=== PATIENT | male | born 1940 | race Caucasian/White ===

== ENCOUNTER 2016-08-03 09:00 | Outpatient (RCR) | payer MEDICARE, OTHER ==
[~2016-08-03 09:00] MED LIST: APIX5TAB PO; APIX5TAB2 PO; ASP81TEC PO; ASPI-983 PO; ATEN25TA PO; CLOP75TA28 PO; CLOP75TA69 PO; CYAN100014 PO; CYAN100T PO; DILT240C86 PO; Diltiazem Hcl PO; ENOX80DI12 SQ; FLUT1AER IH; FOLI0.4T2 PO; HYDR-3729 PO; IPRA30SP NS; LEVO500T69 PO; LISI10TA2 PO; LISI40TA PO; LSNP10T PO; MULT1CAP27 PO; OMEG-12 PO; PRAV40TA PO; PRED20TA PO; PRV20T PO
== END 2016-09-25 | disposition home or self-care (01) ==
LOC: PULM 09:00
PROVIDERS: ATTEND Nurse Practitioner Family
DX: J43.9 Emphysema, unspecified (principal); R06.09 Other forms of dyspnea; Z72.0 Tobacco use

== ENCOUNTER → 2016-08-23 | Outpatient (CLI) | payer MEDICARE, OTHER ==
--- NOTE | 2016-08-23 12:52 | Diagnostic Imaging Report ---
EXAMINATION: PA and lateral chest at 10:34 a.m. INDICATION: Respiratory distress. FINDINGS: The heart is borderline enlarged, but the heart does not seem as prominent as noted on the prior exam of 12/12/2014. The central pulmonary vascularity does not appear to be engorged, and there is no evidence for overt failure at this time. There is no evidence for pneumonia either. However, in the interval since the prior study, a small right pleural effusion has developed. The mediastinum is not widened. The osseous structures are intact. IMPRESSION: The heart has decreased in size since the previous study, and the pulmonary congestion noted on the prior exam has resolved. However, there is now a small right pleural effusion present. A followup exam would be recommended for continued evaluation. Dictated by: Dictated on workstation # [id number]
== END ==
LOC: RAD 09:55
PROVIDERS: ATTEND Nurse Practitioner Family
DX: J40 Bronchitis, not specified as acute or chronic (principal); J43.9 Emphysema, unspecified; R06.09 Other forms of dyspnea
CPT/HCPCS: 71020

== ENCOUNTER → 2016-09-19 | Outpatient (CLI) | payer MEDICARE, OTHER ==
[2016-09-19 09:52] LABS: BASOPHILS % (AUTO) 0 % (0-10); EOSINOPHILS # (AUTO) 0.4 10^3/uL (0.0-0.3); EOSINOPHILS % (AUTO) 6 % (0-10); LYMPHOCYTES # (AUTO) 1.8 X 10^3 (1.0-4.0); LYMPHOCYTES % (AUTO) 24 % (12-44); MEAN CORPUSCULAR HEMOGLOBIN 32 PG (25-34); MEAN CORPUSCULAR HGB CONC 34 G/DL (32-36); MEAN CORPUSCULAR VOLUME 93 FL (80-99); MEAN PLATELET VOLUME 9.6 FL (7.4-10.4); MONOCYTES % (AUTO) 13 % (0-12); NEUTROPHILS # (AUTO) 4.2 X 10^3 (1.8-7.8); NEUTROPHILS % (AUTO) 57 % (42-75); PLATELET COUNT 267 10^3/uL (130-400); RED BLOOD COUNT 4.57 10^6/uL (4.35-5.85); RED CELL DISTRIBUTION WIDTH 13.9 % (10.0-14.5); WHITE BLOOD COUNT 7.4 10^3/uL (4.3-11.0)
[2016-09-19 10:04] LABS: ALBUMIN 3.2 G/DL (3.2-4.5); BILIRUBIN,TOTAL 0.6 MG/DL (0.1-1.0); CALCIUM 8.9 MG/DL (8.5-10.1); CREATININE SERUM 1.23 MG/DL (0.60-1.30); POTASSIUM 3.8 MMOL/L (3.6-5.0); TOTAL PROTEIN 6.7 G/DL (6.4-8.2)
[2016-09-19 10:23] LABS: THYROID STIMULATING HORMONE 2.65 UIU/ML (0.35-4.94)
== END ==
LOC: CARD 09:13
PROVIDERS: ATTEND Nurse Practitioner Family
DX: I10 Essential (primary) hypertension (principal); R60.9 Edema, unspecified; I35.0 Nonrheumatic aortic (valve) stenosis
CPT/HCPCS: 36415; 80053; 84443; 85025; 93005

== ENCOUNTER → 2017-04-03 | Outpatient (CLI) | payer MEDICARE, OTHER | LOC: RAD 09:22 | PROVIDERS: ATTEND Nurse Practitioner Family | DX: J32.0 Chronic maxillary sinusitis (principal); R26.9 Unspecified abnormalities of gait and mobility | CPT/HCPCS: 70551 ==

== ENCOUNTER → 2017-04-26 | Outpatient (CLI) | payer MEDICARE, OTHER ==
--- NOTE | 2017-04-26 11:14 | Diagnostic Imaging Report ---
INDICATION: Shortness of breath. COMPARISON: 08/23/2016. FINDINGS: Stable small right pleural effusion. Possible increasing trace left pleural effusion. No pneumothorax. Coarse central heterogeneous opacities have not substantially changed. No dense airspace consolidation. No pneumothorax. Stable borderline cardiomegaly. IMPRESSION: 1. Small right and trace left pleural effusions, similar in appearance to 08/23/2016 examination. 2. Central perihilar opacities may relate to interstitial edema or atypical infectious process. Dictated by: Dictated on workstation # [id number]
== END ==
LOC: RAD 10:36
PROVIDERS: ATTEND Nurse Practitioner Family
DX: J90 Pleural effusion, not elsewhere classified (principal); R91.8 Other nonspecific abnormal finding of lung field
CPT/HCPCS: 71020

== ENCOUNTER → 2017-05-03 | Outpatient (CLI) | payer MEDICARE, OTHER ==
[2017-05-03 11:41] LABS: BASOPHILS % (AUTO) 0 % (0-10); EOSINOPHILS # (AUTO) 0.4 10^3/uL (0.0-0.3); EOSINOPHILS % (AUTO) 5 % (0-10); LYMPHOCYTES # (AUTO) 2.1 X 10^3 (1.0-4.0); LYMPHOCYTES % (AUTO) 23 % (12-44); MEAN CORPUSCULAR HEMOGLOBIN 33 PG (25-34); MEAN CORPUSCULAR HGB CONC 34 G/DL (32-36); MEAN CORPUSCULAR VOLUME 95 FL (80-99); MEAN PLATELET VOLUME 10.2 FL (7.4-10.4); MONOCYTES # (AUTO) 0.9 X 10^3 (0.0-1.0); MONOCYTES % (AUTO) 10 % (0-12); NEUTROPHILS # (AUTO) 5.8 X 10^3 (1.8-7.8); NEUTROPHILS % (AUTO) 62 % (42-75); PLATELET COUNT 212 10^3/uL (130-400); RED BLOOD COUNT 4.24 10^6/uL (4.35-5.85); RED CELL DISTRIBUTION WIDTH 13.9 % (10.0-14.5); WHITE BLOOD COUNT 9.3 10^3/uL (4.3-11.0)
[2017-05-03 12:05] LABS: ALBUMIN 3.9 GM/DL (3.2-4.5); BILIRUBIN,TOTAL 0.8 MG/DL (0.1-1.0); CALCIUM 9.6 MG/DL (8.5-10.1); CREATININE SERUM 1.43 MG/DL (0.60-1.30); POTASSIUM 3.7 MMOL/L (3.6-5.0); TOTAL PROTEIN 7.9 GM/DL (6.4-8.2)
[2017-05-03 12:29] LABS: ABG BASE EXCESS 0.5 MMOL/L (-2.5-2.5); ABG HCO3 25 MMOL/L (23-27); ABG OXYGEN SATURATION 94 % (94-100); ABG PCO2 37 MMHG (35-45); ABG PH 7.43 (7.37-7.43); ABG PO2 64 MMHG (79-93); ABG TCO2 25.7 MMOL/L (21.0-31.0)
[2017-05-03 12:30] LABS: ALLENS TEST YES-POS
[2017-05-03 12:31] LABS: PATIENT TEMP 96.7
--- NOTE | 2017-05-03 14:36 | Diagnostic Imaging Report ---
EXAM: PA and lateral views of the chest. INDICATION: COPD. COMPARISON: 04/26/2017. FINDINGS: The lungs are hyperinflated. Bilateral small pleural effusions, slightly larger on the right side, are seen. Minimal bibasilar atelectasis is noted. The heart is mildly enlarged. There is an element of mild vascular congestion suggested. Prominence of the interstitial markings otherwise is probably chronic. The mediastinum and miya appear unchanged. There is overall no significant change from 04/26/17. IMPRESSION: Mild cardiomegaly and slight vascular congestion. Bilateral small pleural effusions. Dictated by: Dictated on workstation # [id number]
== END ==
LOC: RAD 11:08
PROVIDERS: ATTEND Internal Medicine Critical Care Medicine
DX: J90 Pleural effusion, not elsewhere classified (principal); J43.8 Other emphysema; R06.09 Other forms of dyspnea; J30.9 Allergic rhinitis, unspecified; Z87.891 Personal history of nicotine dependence
CPT/HCPCS: 36415; 71020; 80053; 82805; 83880; 85025

== ENCOUNTER 2017-06-10 22:45 | Inpatient (IN) | payer MEDICARE, OTHER ==
[~2017-06-10] VITALS: Ht 162.6 cm; Wt 64.4 kg
[2017-06-10] MEDS ORDERED: LACTATED RINGERS 1,000 ML IV ONE (22:48)
[2017-06-10] MEDS ORDERED: RT-ALBUTEROL SULF 2.5 MG/3 ML PRE-MIX VIAL INH STA (22:48)
--- OUTSIDE RECORDS SUMMARY | 2017-06-10 22:50 | XMS REPORT ---
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 Info Not Available Non Drug Allergy Problems Problem Type Condition Code Onset Dates Condition Status Assessment Benign essential HTN I10 Active Assessment Epistaxis R04.0 Active Medications Medication Code System Code Instructions Start Date End Date Status Dosage Cartia XT [facility] [address]-35 240 MG Orally Once a day 1 capsule Eliquis [facility] [address]-84 5 MG Orally not defined Pravastatin Sodium [facility] [address]-56 40 MG Orally Once a day 1 tablet Procedures Procedure Coding System Code Date [facility] VISIT NEW PATIENT CPT-4 G0466 October 15, 2015 Office Visit, New Pt., Level 3 CPT-4 57257 October 15, 2015 MEASURE BLOOD OXYGEN LEVEL CPT-4 54816 October 15, 2015 Vital Signs Date/Time: October 15, 2015 Temperature 98.4 F Weight 159.0 lbs Height 64 in Oximetry 98 % Blood Pressure Diastolic 90 mmHg Blood Pressure Systolic 190 mmHg Cardiac Monitoring Heart Rate 92 bpm BMI 27.29 Index Results No Known Results Summary Purpose [employer] Submission
[2017-06-10] MEDS ORDERED: UMEC62.5 INH (22:53)
[2017-06-10] MEDS ORDERED: POTA10TA10 PO (22:53)
[2017-06-10] MEDS ORDERED: PANT40TA3 PO (22:53)
[2017-06-10] MEDS ORDERED: ROPI0.5T2 PO (22:53)
[2017-06-10] MEDS ORDERED: methylPREDNISolone 125 MG (Solu-MEDROL) VIAL IV STA (23:00)
[2017-06-10 23:02] LABS: BASOPHILS # (AUTO) 0.1 10^3/uL (0.0-0.1); BASOPHILS % (AUTO) 1 % (0-10); EOSINOPHILS # (AUTO) 0.2 10^3/uL (0.0-0.3); EOSINOPHILS % (AUTO) 2 % (0-10); LYMPHOCYTES # (AUTO) 2.9 X 10^3 (1.0-4.0); LYMPHOCYTES % (AUTO) 25 % (12-44); MEAN CORPUSCULAR HEMOGLOBIN 32 PG (25-34); MEAN CORPUSCULAR HGB CONC 34 G/DL (32-36); MEAN CORPUSCULAR VOLUME 95 FL (80-99); MONOCYTES # (AUTO) 1.3 X 10^3 (0.0-1.0); MONOCYTES % (AUTO) 11 % (0-12); NEUTROPHILS # (AUTO) 7.2 X 10^3 (1.8-7.8); NEUTROPHILS % (AUTO) 62 % (42-75); PLATELET COUNT 266 10^3/uL (130-400); RED BLOOD COUNT 4.55 10^6/uL (4.35-5.85); RED CELL DISTRIBUTION WIDTH 14.1 % (10.0-14.5); WHITE BLOOD COUNT 11.7 10^3/uL (4.3-11.0)
[2017-06-10 23:14] LABS: INR 1.3 (0.8-1.4); PROTHROMBIN TIME PATIENT 16.6 SEC (12.2-14.7)
[2017-06-10 23:14] LABS: ABG BASE EXCESS 3.1 MMOL/L (-2.5-2.5); ABG HCO3 28 MMOL/L (23-27); ABG OXYGEN SATURATION 100 % (94-100); ABG PCO2 51 MMHG (35-45); ABG PH 7.36 (7.37-7.43); ABG PO2 203 MMHG (79-93); ABG TCO2 29.7 MMOL/L (21.0-31.0)
[2017-06-10 23:17] LABS: ALLENS TEST YES-POS; PATIENT TEMP 98.2
[2017-06-10 23:25] VITALS: BP 136/100
[2017-06-10 23:25] LABS: ALANINE AMINOTRANSFERASE 19 U/L (0-55); ALBUMIN 3.6 GM/DL (3.2-4.5); ANION GAP 11 MMOL/L (5-14); ASPARTATE AMINO TRANSFERASE 22 U/L (5-34); BILIRUBIN,TOTAL 0.6 MG/DL (0.1-1.0); BLOOD UREA NITROGEN 21 MG/DL (7-18); BUN/CREATININE RATIO 15; CALCIUM 9.4 MG/DL (8.5-10.1); CARBON DIOXIDE 29 MMOL/L (21-32); CHLORIDE 102 MMOL/L (98-107); CREATININE SERUM 1.42 MG/DL (0.60-1.30); GFR ESTIMATED 49; GLUCOSE 116 MG/DL (70-105); MAGNESIUM 1.8 MG/DL (1.8-2.4); POTASSIUM 3.4 MMOL/L (3.6-5.0); SODIUM 142 MMOL/L (135-145); TOTAL PROTEIN 7.8 GM/DL (6.4-8.2)
[2017-06-10 23:29] VITALS: BP 147/104
[2017-06-10 23:31] LABS: TROPONIN I < 0.30 NG/ML (<0.30)
--- NOTE | 2017-06-10 23:34 | ED Respiratory ---
General Chief Complaint: Respiratory Problems Stated Complaint: SOA/COPD Nursing Triage Note: brought in by [facility] for c/o increased soa x2 days Source: patient Exam Limitations: clinical condition (SOA and BiPAP initiatied.) (DONTA NI) History of Present Illness Time seen by provider: 23:34 Initial Comments 76-year-old male patient presents to the emergency department with complaints of shortness of air per EMS. EMS was called to the patient's home due to progressively worsening shortness of air over the last 2-3 days. Patient does have a history of COPD. Patient is unable to give history at this time due to shortness of air and BiPAP. (DONTA NI) Initial Comments Patient presents to ER by EMS and EMS gives a chief complaint they're called out because the patient was very short of breath. He has on his home dose of O2 by nasal cannula and they have given 1 dose of DuoNeb en route. fills in the history that recently he was seen by Dr. Ventura and started on cefdinir and prednisone outpatient for possible pneumonia versus COPD exacerbation. He has continued decline despite this intervention and been very short of breath. She also remarks that the last week he has been hallucinating and seeing things that are not there. She says that she is not aware the patient having any fevers , chills, rash. He has been coughing but no more than usual. He's had no diarrhea or throwing up or chest pain that she is aware of. (YELENA DUMONT) Allergies and Home Medications Allergies Coded Allergies: No Known Drug Allergies (Unverified , 01/13/16) Home Medications Apixaban 5 Mg Tablet, 5 MG PO BID, (Reported) Cyanocobalamin 1,000 Mcg Tablet, 1,000 MCG PO DAILY, (Reported) Diltiazem HCl 240 Mg Cap.er.24h, 240 MG PO DAILY, (Reported) Enoxaparin Sodium 80 Mg/0.8 Ml Syringe, 70 MG SQ BID, (Reported) Fluticasone/Vilanterol 1 Each Blst.w.dev, 1 EACH IH DAILY, (Reported) Folic Acid 0.4 Mg Tablet, 0.4 MG PO DAILY, (Reported) Hydrocodone/Acetaminophen 1 Each Tablet, 1-2 EACH PO Q4H, #30 Prescribed by: MIKE CEVALLOS on 01/20/16 0904 Ipratropium Bradner 21 Mcg Wheeler, 2 SPRAYS NS BID PRN for ALLERGIES, (Reported) [place]-3/Dha/Epa/Fish Oil 1 Each Capsule.dr, 1,000 MG PO DAILY, (Reported) Pantoprazole Sodium 40 Mg Tablet.dr, (Reported) Potassium Chloride 10 Meq Tablet.er, (Reported) Pravastatin Sodium 40 Mg Tablet, 40 MG PO HS, (Reported) Ropinirole HCl 0.5 Mg Tablet, (Reported) Umeclidinium [place] 62.5 Mcg Blst.w.dev, (Reported) Constitutional: see HPI (history of present illness is unobtainable as the patient is breathless and having difficulty communicating over the BiPAP mask.) (YELENA DUMONT) Past Rtfvtms-Hqujnr-Ldvary Hx Patient Social History Alcohol Use: Denies Use Recreational Drug Use: No Smoking Status: Former Smoker Former Smoker, Quit: Jan 12, 2013 2nd Hand Smoke Exposure: No Recent Foreign Travel: No Contact w/Someone Who Travel: No Recent Infectious Disease Expo: No Recent Hopitalizations: No (DONTA NI) Immunizations Up To Date Tetanus Booster (TDap): Unknown PED Vaccines UTD: No Date of Pneumonia Vaccine: Oct 14, 2014 Date of Influenza Vaccine: Oct 06, 2014 (DONTA NI) Seasonal Allergies Seasonal Allergies: No (DONTA NI) Surgeries History of Surgeries: Yes (STENT IN R LEG, Cataract bilateral) (DONTA NI) Respiratory History of Respiratory Disorde: Yes Respiratory Disorders: Pneumonia, COPD (DONTA NI) Cardiovascular History of Cardiac Disorders: Yes (CHF X2, AORTIC STENOSIS) Cardiac Disorders: Atrial Fibrillation, Cardiomyopathy, High Cholesterol, Hypertension, Irregular Heartbeat, Peripheral Vascular, Valvular Heart Disease (DONTA NI) Neurological History of Neurological Disord: No (DONTA NI) Reproductive System Hx Reproductive Disorders: No Sexually Transmitted Disease: No HIV/AIDS: No (DONTA NI) Gastrointestinal History of Gastrointestinal Di: No (DONTA NI) Musculoskeletal History of Musculoskeletal Dis: Yes Musculoskeletal Disorders: Arthritis, Rheumatoid Arthritis (DONTA NI) Endocrine History of Endocrine Disorders: No (DONTA NI) HEENT HEENT Disorders: Cataract Loss of Vision: Denies Hearing Impairment: Denies (DONTA NI) Cancer History of Cancer: No (DONTA NI) Psychosocial History of Psychiatric Problem: No (DONTA NI) Integumentary History of Skin or Integumenta: No Skin/Integumentary Disorders: Psoriasis (DONTA NI) Blood Transfusions History of Blood Disorders: No Adverse Reaction to a Blood Tr: No (N/A) (DONTA NI) Family Medical History Family Medial History: FH: lung cancer 19 FATHER, Onset:60 years & older FHx: heart disease 19 MOTHER, Onset:60 years & older (DONTA NI) Family Medial History: FH: lung cancer 19 FATHER, Onset:60 years & older FHx: heart disease 19 MOTHER, Onset:60 years & older (YELENA DUMONT) Physical Exam Vital Signs Vital Sign - Last 12Hours 06/10/17 22:55 Temp 98.2 Pulse 110 Resp 34 B/P (MAP) 136/100 (112) Pulse Ox 98 O2 Delivery OxyMask O2 Flow Rate 10.00 (YELENA DUMONT) Vital Signs Capillary Refill : Less Than 3 Seconds (DONTA NI) General Appearance: severe distress, thin Eyes: Bilateral Eye Normal Inspection, Bilateral Eye PERRL, Bilateral Eye EOMI HEENT: PERRL/EOMI, TMs normal, pharynx normal (oral mucosa is dry) Neck: non-tender, supple, normal inspection Respiratory: chest non-tender, respiratory distress (moderate to severe), decreased breath sounds, accessory muscle use, rhonchi, wheezing Cardiovascular: normal peripheral pulses, no edema, no JVD, other (pallor especially of the distal extremities) Gastrointestinal: normal bowel sounds, non tender, soft, No mass Extremities: normal inspection, no pedal edema, no calf tenderness, normal capillary refill Neurologic/Psychiatric: alert, oriented x 3, other (anxious) Skin: warm/dry, pallor (distal extremities 4) (YELENA DUMONT) Focused Exam Evaluation Lactate Level Laboratory Tests 06/10/17 22:50: Lactic Acid Level 2.09*H 06/11/17 00:50: Lactic Acid Level 6.87*H (YELENA DUMONT) Time of Focused Exam: 02:10 Respiratory: Chest Non Tender, Respiratory Distress, Wheezing, Other ( orotracheally intubated with a 7.5 at 24 at the lips.) Cardiovascular: Regular Rate, Rhythm, No Edema, Normal Peripheral Pulses, Other (color has improved significantly in the distal extremities. No cyanosis.) Capillary Refill: Less Than 3 Seconds Peripheral Pulses: 2+ Dorsalis Pedis (R), 2+ Left Dors-Pedis (L), 2+ Radial Pulses (R), 2+ Radial Pulses (L) Skin: normal color, warm/dry Lactic Acid Level Laboratory Tests Test 06/10/17 22:50 06/11/17 00:50 Lactic Acid Level 2.09 MMOL/L (0.50-2.00) *H 6.87 MMOL/L (0.50-2.00) *H (YELENA DUMONT) Lumen: triple Central Line Procedure: betadine prep, sterile drapes applied, sterile dressing applied Position: internal jugular (R) Anesthesia: Lidocaine Volume Anesthetic (ccs): 1 Complications: none Post Position: sutured, good blood return, position confirmed w/ CXR Progress Patient was cleaned with chlorhexidine prepped and draped in this usual sterile fashion. Everybody in the room wore mask and appropriate sterile garb. Using ultrasound a needle was passed into the right IJ. Good nonpulsatile blood flow and then a guidewire was placed. The needle was removed and an 11 blade was used to widen the opening of the skin to 0.5 cm. A dilator catheter was then introduced and then removed. The triple lumen was then introduced on the central canal over the guidewire. No ectopy was seen during this procedure. The triple lumen was already flushed. The triple lumen was held in place while guidewire was removed and then sewn into place using the silk suture her vital at 16 cm. The bowel patch was placed in a sterile dressing was placed. The patient tolerated the procedure very well. (YELENA DUMONT) Date of ETT Placement: Jun 11, 2017 Time of ETT Placement: 00:51 Intubation Method: orotracheal Tube Size: 7.5 Medications: Etomidate (20), Succinylcholine (100) Positive End Tide CO2: Yes Breath Sounds after Intubation: bilateral-equal Intubation Complications: no complications (1 attempt) Post Intubation Xray: Yes Progress See critical care note for intubation procedure. (YELENA DUMONT) Progress/Results/Core Measures Suspected Sepsis Recent Fever Within 48 Hours: No Infection Criteria Present: Documented Infection New/Unexplained Altered Menta: No Sepsis Screen: Possible Sepsis Risk Sepsis Diagnosis: SIRS Temperature:98.2 Pulse: 94 Respiratory Rate: 44 Laboratory Tests 06/10/17 22:50: White Blood Count 11.7H Blood Pressure 136 /100 Mean: 112 Laboratory Tests 06/10/17 22:50: Lactic Acid Level 2.09*H 06/11/17 00:50: Lactic Acid Level 6.87*H Laboratory Tests 06/10/17 22:50: Creatinine 1.42H, INR Comment 1.3, Platelet Count 266, Total Bilirubin 0.6 (DONTA NI) Results/Orders Lab Results Laboratory Tests Test 06/10/17 00:00 06/10/17 22:50 06/11/17 00:43 06/11/17 00:50 Range/Units Blood Gas Puncture Site LRAD Blood Gas Patient Temperature 98.2 Arterial Blood pH 7.36 L 7.37-7.43 Arterial Blood Partial Pressure CO2 51 H 35-45 MMHG Arterial Blood Partial Pressure O2 203 H 79-93 MMHG Arterial Blood HCO3 28 H 23-27 MMOL/L Arterial Blood Total CO2 29.7 21.0-31.0 MMOL/L Arterial Blood Oxygen Saturation 100 94-100 % Arterial Blood Base Excess 3.1 H -2.5-2.5 MMOL/L Matthew Test YES-POS Blood Gas Ventilator Setting NO Blood Gas Inspired Oxygen 60 White Blood Count 11.7 H 4.3-11.0 10^3/uL Red Blood Count 4.55 4.35-5.85 10^6/uL Hemoglobin 14.4 13.3-17.7 G/DL Hematocrit 43 40-54 % Mean Corpuscular Volume 95 80-99 FL Mean Corpuscular Hemoglobin 32 25-34 PG Mean Corpuscular Hemoglobin Concent 34 32-36 G/DL Red Cell Distribution Width 14.1 10.0-14.5 % Platelet Count 266 130-400 10^3/uL Mean Platelet Volume 10.0 7.4-10.4 FL Neutrophils (%) (Auto) 62 42-75 % Lymphocytes (%) (Auto) 25 12-44 % Monocytes (%) (Auto) 11 0-12 % Eosinophils (%) (Auto) 2 0-10 % Basophils (%) (Auto) 1 0-10 % Neutrophils # (Auto) 7.2 1.8-7.8 X 10^3 Lymphocytes # (Auto) 2.9 1.0-4.0 X 10^3 Monocytes # (Auto) 1.3 H 0.0-1.0 X 10^3 Eosinophils # (Auto) 0.2 0.0-0.3 10^3/uL Basophils # (Auto) 0.1 0.0-0.1 10^3/uL Prothrombin Time 16.6 H 12.2-14.7 SEC INR Comment 1.3 0.8-1.4 Activated Partial Thromboplast Time 36 H 24-35 SEC D-Dimer 1.53 H 0.00-0.49 UG/ML Sodium Level 142 135-145 MMOL/L Potassium Level 3.4 L 3.6-5.0 MMOL/L Chloride Level 102 98-107 MMOL/L Carbon Dioxide Level 29 21-32 MMOL/L Anion Gap 11 5-14 MMOL/L Blood Urea Nitrogen 21 H 7-18 MG/DL Creatinine 1.42 H 0.60-1.30 MG/DL Estimat Glomerular Filtration Rate 49 BUN/Creatinine Ratio 15 Glucose Level 116 H 70-105 MG/DL Lactic Acid Level 2.09 *H 6.87 *H 0.50-2.00 MMOL/L Calcium Level 9.4 8.5-10.1 MG/DL Magnesium Level 1.8 1.8-2.4 MG/DL Total Bilirubin 0.6 0.1-1.0 MG/DL Aspartate Amino Transf (AST/SGOT) 22 5-34 U/L Alanine Aminotransferase (ALT/SGPT) 19 0-55 U/L Alkaline Phosphatase 180 H 40-136 U/L Troponin I < 0.30 < 0.30 <0.30 NG/ML B-Type Natriuretic Peptide 3001.7 H <100.0 PG/ML Total Protein 7.8 6.4-8.2 GM/DL Albumin 3.6 3.2-4.5 GM/DL Total Creatine Kinase 70 30-200 U/L Creatine Kinase MB 3.9 <6.6 NG/ML Myoglobin 136.1 H 10.0-92.0 NG/ML Test 06/11/17 01:13 06/11/17 01:15 Range/Units Blood Gas Puncture Site LRAD Blood Gas Patient Temperature 98.0 Arterial Blood pH 7.17 *L 7.37-7.43 Arterial Blood Partial Pressure CO2 62 H 35-45 MMHG Arterial Blood Partial Pressure O2 213 H 79-93 MMHG Arterial Blood HCO3 22 L 23-27 MMOL/L Arterial Blood Total CO2 24.0 21.0-31.0 MMOL/L Arterial Blood Oxygen Saturation 99 94-100 % Arterial Blood Base Excess -5.2 L -2.5-2.5 MMOL/L Matthew Test YES-POS Blood Gas Ventilator Setting YES Blood Gas Inspired Oxygen 80 Urine Color YELLOW Urine Clarity SLIGHTLY CLOUDY Urine pH 5 5-9 Urine Specific [place] 1.025 H 1.016-1.022 Urine Protein 3+ H NEGATIVE Urine Glucose (UA) NEGATIVE NEGATIVE Urine Ketones NEGATIVE NEGATIVE Urine Nitrite NEGATIVE NEGATIVE Urine Bilirubin NEGATIVE NEGATIVE Urine Urobilinogen NORMAL NORMAL MG/DL Urine Leukocyte Esterase 2+ H NEGATIVE Urine RBC (Auto) 1+ H NEGATIVE Urine RBC 0-2 /HPF Urine WBC 0-2 /HPF Urine Squamous Epithelial Cells RARE /HPF Urine Crystals PRESENT H /LPF Urine Amorphous Sediment LARGE SANDRA URATES H /LPF Urine Bacteria TRACE /HPF Urine Casts PRESENT /LPF Urine Hyaline Casts 2-5 H /LPF Urine Mucus NEGATIVE /LPF Urine Culture Indicated NO (YELENA DUMONT) My Orders Orders - YELENA DUMONT Albuterol Pre-Mix Nebs (Rt) (Proventil (06/10/17 22:48) Arterial Blood Gas (06/10/17 22:48) Cbc With Automated Diff (06/10/17 22:48) Comprehensive Metabolic Panel (06/10/17 22:48) Fibrin Degradation Products (06/10/17 22:48) Lactic Acid Analyzer (06/10/17 22:48) Magnesium (06/10/17 22:48) Troponin I (06/10/17 22:48) Blood Culture (06/10/17 22:48) Sputum Culture (06/10/17 22:48) Ua Culture If Indicated (06/10/17 22:48) Protime With Inr (06/10/17 22:48) Partial Thromboplastin Time (06/10/17 22:48) Chest 1 View, Ap/Pa Only (06/10/17 22:48) O2 (06/10/17 22:48) Saline Lock/Iv-Start (06/10/17 22:48) Vital Signs Adult Sepsis Patie Q1H (06/10/17 22:48) Remove Rings In Anticipation O (06/10/17 22:48) Lactated Ringers (Lr 1000 Ml Iv Solution (06/10/17 22:48) Ekg Tracing (06/10/17 22:48) Continuous Ekg Monitoring (06/10/17 22:48) Svn Sm Volume Nebulizer Rt-Rfs (06/10/17 22:48) Chest 1 View, Ap/Pa Only (06/11/17 ) Propofol Drip (Icu) (Diprivan Drip (Icu) (06/11/17 01:04) Arterial Blood Gas (06/11/17 01:12) Peralta Cath Insertion (06/11/17 01:12) (YELENA DUMONT) Medications Given in ED Current Medications Medications Dose Ordered Sig/Kavon Route Start Time Stop Time Status Last Admin Dose Admin Ceftriaxone Sodium 1000 mg/ Sodium Chloride 50 ml @ 100 mls/hr ONCE ONCE IV 06/10/17 23:45 06/11/17 00:14 DC 06/10/17 23:48 100 MLS/HR Diltiazem HCl 10 mg ONCE ONCE IVP 06/11/17 00:30 06/11/17 00:31 DC 06/11/17 00:33 10 MG Lactated Ringer's 1,000 ml @ 0 mls/hr Q0M ONCE IV 06/10/17 22:48 06/10/17 22:53 DC 06/10/17 23:01 0 MLS/HR Lorazepam 0.5 mg ONCE ONCE IVP 06/10/17 23:45 06/10/17 23:46 DC 06/10/17 23:48 0.5 MG Lorazepam 0.5 mg ONCE ONCE IVP 06/11/17 00:30 06/11/17 00:31 DC 06/11/17 00:40 0.5 MG Propofol 100 ml @ ud STK-MED ONCE IV 06/11/17 01:04 06/11/17 01:07 DC 06/11/17 01:08 5 MLS/HR Sodium Chloride 100 ml @ ud STK-MED ONCE .ROUTE 06/11/17 00:39 06/11/17 00:42 DC 06/11/17 00:47 5 MLS/HR (YELENA DUMONT) Vital Signs/I&O Vital Sign - Last 12Hours 06/10/17 06/10/17 06/10/17 06/10/17 22:55 22:55 23:25 23:29 Temp 98.2 Pulse 110 94 103 Resp 34 44 47 B/P (MAP) 136/100 (112) Pulse Ox 98 98 100 100 O2 Delivery OxyMask Room Air O2 Flow Rate 10.00 10.00 50.00 40.00 06/11/17 06/11/17 06/11/17 06/11/17 00:36 00:46 00:50 01:08 Temp 98.0 98.0 98.2 Pulse 98 98 Resp 22 22 B/P (MAP) 154/80 154/80 Pulse Ox 100 O2 Delivery Ambu-Bag OxyMask O2 Flow Rate 10.00 (YELENA DUMONT) Vital Signs/I&O Capillary Refill : Less Than 3 Seconds (DONTA NI) Blood Pressure Mean: 112 Progress Note : Time: 00:30 Progress Note I initially examined the patient and found him to be in COPD exacerbation and placed initial orders and DONTA took over the patient got a history and examination. I was summoned by the nurse practitioner at 0030 because the patient's status had deteriorated and he was having a rapid pulse rate above 200. He has a known history of atrial fibrillation on blood thinners. He had received about 10 mg of albuterol at this time and working theory was that this had pushed him into atrial fibrillation with rapid ventricular rate. We ordered 10 mg of Cardizem IV push followed by a drip. We ordered a liter fluids of the patient appeared to be dry to be septic despite his increased BNP. He did receive 1 L at that time. His labs and ABG were reviewed showing respiratory difficulty as well as possible infiltrate on the right lower lobe of his chest x -ray. He was very anxious and not cooperating with [id number] and his blood pressure was good but he was not ventilating well. I was also concerned with his severe agitation and tachycardia that he may have had a coronary event so we elected to use fentanyl for its anxiolysis as well as pain medication properties and obtain a immediate EKG, cardiac enzymes and EKG showed some strain but no definite STEMI. By the time EKG was obtained the Cardizem had been given and his heart rate was back down around 100. At this point the patient was not responding to anything but noxious stimuli so an ABG was ordered and we elected to go ahead and intubate the patient. After the patient was intubated and ascertained he had good placement of the OG and ETT the ABG was obtained showing CO2 in the 60s and a pH that had worsened. His blood pressure been okay although it was steadily going down as we're using propofol to sedate him while placing a central line. We'll eased up on the propofol and his blood pressure improved some. Prior to using succinylcholine and etomidate was ascertained his potassium was around 3. Once the patient was stabilized lying down, intubated and on mechanical ventilation we passed him off to the inpatient team and eICU lab manager. After intubation his breath sounds are become slightly more wheezing so I ordered another 5 mg of albuterol. (YELENA DUMONT) ECG Initial ECG Impression Date: Jun 11, 2017 Initial ECG Impression Time: 00:38 Initial ECG Rate: 102 Initial ECG Rhythm: A Fib/Flutter Initial ECG Intervals: QT (438) Initial ECG Impression: Atrial Fibrillation Initial ECG Comparisson: Changed Comment This is post 10 mg Cardizem atrial fibrillation no longer and rapid ventricular rate. There are some depression less than 2 blocks noted in lead V5 but no contiguous depression or reciprocal elevation. Artifact noted. (YELENA DUMONT) Diagnostic Imaging Diagonstic Imaging: Xray Plain Films/CT/US/NM/MRI: chest Comments COPD. Right lower infiltrate versus pleural effusion. 1 view chest. Reviewed: Reviewed by Me Diagonstic Imaging: Xray (1v) Plain Films/CT/US/NM/MRI: chest Comments Postintubation ET tube is 3 cm above the audra. Okay to position. OG tube is not curled in the stomach but in good position. Reviewed: Reviewed by Me (YELENA DUMONT) Critical Care Note Critical Care Start Time: 00:33 Stop Time: 02:00 Total Time (minutes) 1h 27m Progress Was called the patient's room as the patient was having a heart rate above 200 with a history of atrial fibrillation. I saw the patient earlier when he came in to the ER briefly. He is here for COPD exacerbation and respiratory failure. He was not tolerating BiPAP so they RT was ventilating with bag valve mask and maintaining an O2 sat in the upper 80s to low 90s. Patient was very anxious, tremulous and not able to communicate verbally. His tremors became so severe we gave 50 g of fentanyl for anxiolysis and pain. The concern is that he was going into atrial fibrillation with rapid ventricular rate secondary to respiratory failure secondary to COPD. Our concern was that he might of had a coronary event so an EKG was obtained that did not show credible ST-T wave elevation or depression. There was some lateral lead minor depression but only seen in one lead, V5. The fentanyl was chosen over a benzodiazepine as she was having a coronary wanted to treat his pain as well and try and open the coronaries with an opiate. This called him down and the patient still unresponsive so the decision was made to intubate. The patient's atrial fibrillation with rapid ventricular response was treated with Cardizem. The beta adrenergics given and via small-volume nebulization likely triggered his atrial fibrillation. The 10 mg of Cardizem bolus brought him back into a sinus rhythm and by the time we could get a drip started at 5 mg his heart rate had gone from the 80s back up to about 100 -110. The patient was given 20 of etomidate and 100 of succinylcholine. His potassium was 3.4. When he was ascertained to be appropriately paralyzed and sedated a 7.5 ET tube was placed across the vocal cords with good capnograph paper color change and bilateral symmetric air sounds were heard. There is increased wheezing on reevaluation after intubation versus before intubation so 10 mg of albuterol were ordered by small-volume nebulization. Patient also received a small dose of Ativan for anxiety prior to intubation. Care was given to try and avoid intubation in this patient and use the BiPAP again but essentially switched him onto his sats began to drop and he did not tolerate it despite already having received the premedication fentanyl and Ativan. We will obtain chest x-ray get an oral gastric tube placed and get an ABG. Blood was drawn for cardiac enzymes. The patient is now stable with a decent blood pressure throughout of 150 over 80s and his sats are now on the low to mid 90s. A central line will be placed. Multiple times throughout the critical-care the family was updated and allowed to come back and visit with the patient in between procedures. (YELENA DUMONT) Departure Communication (Admissions) Progress Notes Upon 's arrival batsheva reported the patient had been started on Omnicef and prednisone as an outpatient at Dr. Ventura's office. Patient continued to decline after medications were initiated. Patient was noted to be very anxious and complained of not being able to slow his respiratory rate. Patient was given 0.5 mg of ativan with improved respiratory rate and improved SOA. Patient was given solu-medrol 125 mg and 1 albuterol neb tx's with improved BS bilaterally. Focused exam at 2315 shows Patient A/Ox3, NAD. CV irregularly irregular with a rate HR of 98. LUNGS show wheezing bilaterally with diminished breath sounds of the right base. Awaiting labs and chest x-ray. Patient reports feeling much better at this time. 0023 RT presented to the RN station with reports of patient having increased respiratory distress. Patient noted to be in afib with RVR on the monitor. Cardizem 10 mg IV bolus given and 0.5 mg of ativan. Patient started on a cardizem drip following the bolus. Dr. Dumont summoned to the patient's room for possible need of intubation. (DONTA NI) Impression Impression: Primary Impression: Acute exacerbation of COPD with asthma Additional Impressions: Atrial fibrillation with rapid ventricular response Acute respiratory failure Qualified Codes: J96.02 - Acute respiratory failure with hypercapnia Hypercapnia Severe sepsis Pneumonia Qualified Codes: J18.1 - Lobar pneumonia, unspecified organism Disposition: ADMITTED INPATIENT Condition: Critical Admissions Decision to Admit Reason: Admit from ER (General) Decision to Admit/Date: Jun 11, 2017 Time/Decision to Admit Time: 02:23 (YELENA DUMONT) Departure-Patient Inst. Referrals: ISRRAEL SONI MD (PCP/Family) Primary Care Physician Copy Copies To 1: ISRRAEL SONI MD, GRETCHEN L PA Jun 10, 2017 23:34 YELENA DUMONT Jun 11, 2017 01:05
[2017-06-10] MEDS ORDERED: LORazepam INJ 2 MG/ML (ATIVAN) VIAL IVP ONE (23:45)
[2017-06-10] MEDS ORDERED: cefTRIAXone INJECTION 1,000 MG in NS (IVPB) 50 ML IV ONE (23:45)
[2017-06-11] VITALS (48 sets, daily range): BP systolic 92–130; BP diastolic 49–85
[2017-06-11] MEDS ORDERED: DILTIAZEM IV FOR DRIP 125 MG in NS (IVPB) 100 ML IV SCH (00:30)
[2017-06-11] MEDS ORDERED: DILTIAZEM 25 MG/5 ML INJ (CARDIZEM) VIAL IVP ONE (00:30)
[2017-06-11] MEDS ORDERED: DILTIAZEM 25 MG/5 ML INJ (CARDIZEM) VIAL ONE (00:30)
[2017-06-11] MEDS ORDERED: LORazepam INJ 2 MG/ML (ATIVAN) VIAL IVP ONE ×2 (00:30→02:15)
[2017-06-11] MEDS ORDERED: NS (IVPB) 100 ML ONE (00:39)
[2017-06-11] MEDS ORDERED: RT-ALBUTEROL SULF 2.5 MG/3 ML PRE-MIX VIAL ONE (00:57)
[2017-06-11] MEDS ORDERED: fentaNYL INJECTION 100 MCG/2 ML AMP INJ ONE (01:00)
[2017-06-11] MEDS ORDERED: ETOMIDATE IV SOLN 20 MG/10 ML VIAL IV ONE ×2 (01:00→02:15)
[2017-06-11] MEDS ORDERED: SUCCINYLCHOLINE INJ 100 MG/5 ML SYR INJ ONE ×2 (01:00→02:15)
[2017-06-11] MEDS ORDERED: PROPOFOL DRIP (ICU) 100 ML IV ONE (01:04)
[2017-06-11 01:07] LABS: CREATINE KINASE 70 U/L (30-200)
[2017-06-11 01:14] LABS: MYOGLOBIN SERUM 136.1 NG/ML (10.0-92.0); TROPONIN I < 0.30 NG/ML (<0.30)
[2017-06-11 01:20] LABS: ABG BASE EXCESS -5.2 MMOL/L (-2.5-2.5); ABG HCO3 22 MMOL/L (23-27); ABG OXYGEN SATURATION 99 % (94-100); ABG PCO2 62 MMHG (35-45); ABG PO2 213 MMHG (79-93)
[2017-06-11 01:34] LABS: ALLENS TEST YES-POS
[2017-06-11 01:35] LABS: ABG PH 7.17 (7.37-7.43)
[2017-06-11 01:36] LABS: BILIRUBIN,URINE NEGATIVE (NEGATIVE); KETONES,URINE NEGATIVE (NEGATIVE); LEUKOCYTE ESTERASE ,URINE 2+ (NEGATIVE); NITRITE,URINE NEGATIVE (NEGATIVE); PH,URINE 5 (5-9); PROTEIN,URINE 3+ (NEGATIVE); UROBILINOGEN,URINE NORMAL (NORMAL)
[2017-06-11 01:41] LABS: WBC,URINE 0-2 /HPF
[2017-06-11 01:42] LABS: SQUAMOUS EPITHELIAL CELL,UR RARE /HPF
[2017-06-11] MEDS ORDERED: fentaNYL INJECTION 100 MCG/2 ML AMP IVP ONE (02:15)
[2017-06-11] MEDS ORDERED: NS IV 1000 ML 1,000 ML IV STA (02:30)
[2017-06-11] MEDS ORDERED: AZITHROMYCIN 500 MG (ZITHROMAX) VIAL ONE (03:00)
[2017-06-11] MEDS ORDERED: NS (IVPB) 250 ML ONE (03:00)
[2017-06-11] MEDS: AZITHROMYCIN INJECTION 500 MG in NS (IVPB) 250 ML IV SCH ×2 (03:16→08:27)
[2017-06-11] MEDS: NS IV 1000 ML 1,000 ML IV SCH ×4 (03:46→20:13)
[2017-06-11] MEDS ORDERED: RT-ALBUTEROL/IPRATROPIUM 3 ML (DUONEB) VIAL INH PRN (04:00)
[2017-06-11 04:54] LABS: ABG BASE EXCESS -0.5 MMOL/L (-2.5-2.5); ABG HCO3 24 MMOL/L (23-27); ABG OXYGEN SATURATION 96 % (94-100); ABG PCO2 44 MMHG (35-45); ABG PH 7.36 (7.37-7.43); ABG PO2 68 MMHG (79-93); ABG TCO2 25.8 MMOL/L (21.0-31.0)
[2017-06-11 04:56] LABS: ALLENS TEST YES-POS
[2017-06-11 04:57] LABS: PATIENT TEMP 97.1
[2017-06-11 05:12] LABS: BASOPHILS % (AUTO) 0 % (0-10); EOSINOPHILS % (AUTO) 0 % (0-10); LYMPHOCYTES # (AUTO) 0.5 X 10^3 (1.0-4.0); LYMPHOCYTES % (AUTO) 4 % (12-44); MEAN CORPUSCULAR HEMOGLOBIN 32 PG (25-34); MEAN CORPUSCULAR HGB CONC 33 G/DL (32-36); MEAN CORPUSCULAR VOLUME 96 FL (80-99); MEAN PLATELET VOLUME 10.3 FL (7.4-10.4); MONOCYTES # (AUTO) 0.3 X 10^3 (0.0-1.0); MONOCYTES % (AUTO) 2 % (0-12); NEUTROPHILS # (AUTO) 10.7 X 10^3 (1.8-7.8); NEUTROPHILS % (AUTO) 94 % (42-75); PLATELET COUNT 219 10^3/uL (130-400); RED BLOOD COUNT 3.93 10^6/uL (4.35-5.85); WHITE BLOOD COUNT 11.4 10^3/uL (4.3-11.0)
[2017-06-11] MEDS: NOREPINEPHRINE 4 MG in D5W IV SOLUTION (EXCEL) 250 ML IV SCH ×2 (05:23→18:18)
[2017-06-11] MEDS ORDERED: NS IV PRN (05:30)
[2017-06-11 05:38] LABS: ALBUMIN 2.9 GM/DL (3.2-4.5); BILIRUBIN,TOTAL 0.9 MG/DL (0.1-1.0); CALCIUM 8.3 MG/DL (8.5-10.1); CREATININE SERUM 1.5 MG/DL (0.60-1.30); MAGNESIUM 1.4 MG/DL (1.8-2.4); PHOSPHORUS 2.4 MG/DL (2.3-4.7); POTASSIUM 3.1 MMOL/L (3.6-5.0); TOTAL PROTEIN 6.4 GM/DL (6.4-8.2)
[2017-06-11 05:50] LABS: BAND NEUTROPHILS 0 %; BASOPHILS % (MANUAL) 0 %; EOSINOPHILS % (MANUAL) 0 %; LYMPHOCYTES % (MANUAL) 3 %; NEUTROPHILS % (MANUAL) 92 %; REACTIVE LYMPHOCYTES 2 %
[2017-06-11] MEDS: KCL 20 MEQ TAB (K-DUR) PO SCH (05:50)
[2017-06-11] MEDS: MAGNESIUM 1 GM/100 ML IVPB 100 ML IV SCH ×3 (05:51→07:41)
[2017-06-11] MEDS: POTASSIUM CL 10MEQ/50ML IVPB 50 ML IV SCH ×5 (05:51→08:40)
[2017-06-11] MEDS ORDERED: methylPREDNISolone 125 MG (Solu-MEDROL) VIAL IVP SCH (06:00)
--- NOTE | 2017-06-11 06:45 | Diagnostic Imaging Report ---
INDICATION: Line placement. TECHNIQUE: Single view chest 2:07 AM. CORRELATION STUDY: 06/11/2017 FINDINGS: Since prior study, right-sided central line has been placed via the neck on the right. Tip over the expected location of the lower SVC. Enteric tube and gastric tube remain in place. Extensive five-lobed infiltrate is present. Heart size enlarged, mediastinum is ill-defined as is the vasculature. IMPRESSION: 1. Right IJ central line has been placed, tip appears to be projected over the low SVC. Endotracheal tube and gastric tube remain in place. Extensive five lobed infiltrate persisting. Dictated by: Dictated on workstation # [id number]
--- NOTE | 2017-06-11 06:58 | Pulmonary Consultation ---
History of Present Illness History of Present Illness Date of Consultation 06/11/17 06:53 Time Seen by Provider: 06:53 Date of Admission History of Present Illness 76yo with hx of COPD presented to ED secondary to worsening SOB via EMS. Onset was over the last 2-3 days. I saw patient in my office and started him on Omnicef and a prednisone taper however patient continue to decline. Upon ED admission pt was placed on BiPAP however still continued to decline and had to be intubated. All information obtained form chart. PT is sedated on vent. I am consulted for ICU management. Allergies and Home Medications Allergies Coded Allergies: No Known Drug Allergies (Unverified , 01/13/16) Home Medications Apixaban 5 Mg Tablet, 5 MG PO BID, (Reported) Cyanocobalamin 1,000 Mcg Tablet, 1,000 MCG PO DAILY, (Reported) Diltiazem HCl 240 Mg Cap.er.24h, 240 MG PO DAILY, (Reported) Enoxaparin Sodium 80 Mg/0.8 Ml Syringe, 70 MG SQ BID, (Reported) Fluticasone/Vilanterol 1 Each Blst.w.dev, 1 EACH IH DAILY, (Reported) Folic Acid 0.4 Mg Tablet, 0.4 MG PO DAILY, (Reported) Hydrocodone/Acetaminophen 1 Each Tablet, 1-2 EACH PO Q4H, #30 Prescribed by: MIKE CEVALLOS on 01/20/16 0904 Ipratropium [place] 21 Mcg [place], 2 SPRAYS NS BID PRN for ALLERGIES, (Reported) [place]-3/Dha/Epa/Fish Oil 1 Each Capsule.dr, 1,000 MG PO DAILY, (Reported) Pantoprazole Sodium 40 Mg Tablet.dr, (Reported) Potassium Chloride 10 Meq Tablet.er, (Reported) Pravastatin Sodium 40 Mg Tablet, 40 MG PO HS, (Reported) Ropinirole HCl 0.5 Mg Tablet, (Reported) Umeclidinium [place] 62.5 Mcg Blst.w.dev, (Reported) Past Raojzyo-Tlwsvz-Qwztte Hx Patient Social History Alcohol Use: Denies Use Recreational Drug Use: No Smoking Status: Former Smoker Type Used: Cigars Former Smoker, Quit: Jan 12, 2013 2nd Hand Smoke Exposure: No Recent Foreign Travel: No Contact w/Someone Who Travel: No Recent Infectious Disease Expo: No Recent Hopitalizations: No Immunizations Up To Date Tetanus Booster (TDap): Unknown PED Vaccines UTD: No Date of Pneumonia Vaccine: Oct 14, 2014 Date of Influenza Vaccine: Oct 06, 2014 Seasonal Allergies Seasonal Allergies: No Surgeries History of Surgeries: Yes (STENT IN R LEG, Cataract bilateral) Respiratory History of Respiratory Disorde: Yes Respiratory Disorders: Pneumonia, COPD Currently Using CPAP: No Currently Using BIPAP: No Cardiovascular History of Cardiac Disorders: Yes (CHF X2, AORTIC STENOSIS) Cardiac Disorders: Atrial Fibrillation, Cardiomyopathy, High Cholesterol, Hypertension, Irregular Heartbeat, Peripheral Vascular, Valvular Heart Disease Neurological History of Neurological Disord: No Reproductive System Hx Reproductive Disorders: No Sexually Transmitted Disease: No HIV/AIDS: No Genitourinary History of Genitourinary Disor: No Gastrointestinal History of Gastrointestinal Di: No Musculoskeletal History of Musculoskeletal Dis: Yes Musculoskeletal Disorders: Arthritis, Rheumatoid Arthritis Endocrine History of Endocrine Disorders: No Are Your Blood Sugars Over 250: No HEENT HEENT Disorders: Cataract Loss of Vision: Denies Hearing Impairment: Denies Cancer History of Cancer: No Psychosocial History of Psychiatric Problem: No Integumentary History of Skin or Integumenta: No Skin/Integumentary Disorders: Psoriasis Blood Transfusions History of Blood Disorders: No Adverse Reaction to a Blood Tr: No (N/A) Family Medical History Family Medial History: FH: lung cancer 19 FATHER, Onset:60 years & older FHx: heart disease 19 MOTHER, Onset:60 years & older Review of Systems Time Seen by Provider: 07:07 Exam Exam Vital Signs Date Time Temp Pulse Resp B/P (MAP) Pulse Ox O2 Delivery O2 Flow Rate FiO2 06/11/17 06:45 75 22 117/62 (80) 100 Mechanical Ventilator 40.00 06/11/17 06:30 68 27 124/58 (80) 100 Mechanical Ventilator 40.00 06/11/17 06:15 71 20 112/58 (76) 100 Mechanical Ventilator 40.00 06/11/17 06:00 75 24 124/54 (77) 100 Mechanical Ventilator 40.00 06/11/17 05:45 74 22 119/54 (75) 100 Mechanical Ventilator 40.00 06/11/17 05:30 64 23 109/55 (73) 98 Mechanical Ventilator 40.00 06/11/17 05:15 62 14 119/64 (82) 100 Mechanical Ventilator 40.00 06/11/17 05:00 73 25 113/60 (77) 100 Mechanical Ventilator 40.00 06/11/17 04:45 70 19 117/52 (73) 94 Mechanical Ventilator 40.00 06/11/17 04:30 63 23 101/49 (66) 94 Mechanical Ventilator 40.00 06/11/17 04:15 75 19 108/51 (70) 100 Mechanical Ventilator 40.00 06/11/17 04:00 97.8 75 20 96/50 (65) 100 Mechanical Ventilator 40.00 06/11/17 04:00 100 Mechanical Ventilator 40.00 06/11/17 03:45 75 23 92/58 (69) 100 Mechanical Ventilator 40.00 06/11/17 03:43 78 100 06/11/17 03:30 79 21 106/57 (73) 100 Mechanical Ventilator 40.00 06/11/17 03:15 82 22 110/60 (77) 100 Mechanical Ventilator 40.00 06/11/17 03:03 78 20 100 40 06/11/17 03:00 81 22 116/55 (75) 99 Mechanical Ventilator 40.00 06/11/17 02:45 79 17 96/62 (73) 99 Mechanical Ventilator 40.00 06/11/17 02:30 76 9 109/53 (71) 100 Mechanical Ventilator 40.00 06/11/17 02:30 100 Mechanical Ventilator 40 06/11/17 02:29 81 06/11/17 02:28 97.8 78 18 99/61 (74) 100 Mechanical Ventilator 40.00 06/11/17 02:25 97.8 80 12 109/53 100 Mechanical Ventilator 40.00 06/11/17 02:11 98.0 75 14 100 Ambu Bag 10.00 06/11/17 01:08 98.2 98 22 154/80 100 OxyMask 10.00 06/11/17 00:50 98.0 06/11/17 00:46 98 22 154/80 Ambu-Bag 06/11/17 00:36 98.0 06/10/17 23:29 103 47 100 40.00 06/10/17 23:25 94 44 100 50.00 06/10/17 22:55 98.2 110 34 136/100 (112) 98 Room Air 10.00 06/10/17 22:55 98 OxyMask 10.00 I & O 06/11/17 07:00 Intake Total 1300 ml Output Total 145 ml Balance 1155 ml General Appearance: Mild Distress Respiratory: Chest Non Tender, Respiratory Distress, Wheezing, Other ( orotracheally intubated with a 7.5 at 24 at the lips.) Cardiovascular: Regular Rate, Rhythm, No Edema, Normal Peripheral Pulses, Other (color has improved significantly in the distal extremities. No cyanosis.) Capillary Refill: Less Than 3 Seconds Peripheral Pulses: 2+ Dorsalis Pedis (R), 2+ Left Dors-Pedis (L), 2+ Radial Pulses (R), 2+ Radial Pulses (L) Gastrointestinal: normal bowel sounds, non tender, soft, No mass Neurologic/Psychiatric: Other (sedated ) Skin: Normal Color, Warm/Dry Lymphatic: No Adenopathy Results Lab Laboratory Tests 06/10/17 22:50 06/11/17 04:45 Assessment/Plan Assessment/Plan Severe sepsis with pneumonia - failed outpatient treatment -Broad spectrum abx -IVF -sebastian cultures pending - check influenza -Check CT of chest without contrast Acute on chronic respiratory failure -continue ventilatory support -SVNS -decrease solumedrol to 40 Q 6 Hypotension -IVF Acute renal failure -IVF Metabolic lactic acidosis -IVF 255 Clinical Quality Measures DVT/VTE Risk/Contraindication: Risk Factor Score Per Nursin RFS Level Per Nursing on Admit: 4+=Very High ELLYN LOYD DO Jun 11, 2017 06:58
[2017-06-11] MEDS ORDERED: INFLUENZA TRIvalent 2017-2018 0.5 ML/45 MCG SYR IM ONE (07:00)
--- NOTE | 2017-06-11 07:02 | Diagnostic Imaging Report ---
INDICATION: Tube placement. TECHNIQUE: Single view chest 1:03 AM. CORRELATION STUDY: 06/10/2017 FINDINGS: Since prior study, endotracheal tube and gastric tube have been placed. ET tube tip over the trachea at the level of the clavicles. Gastric tube passes below the left hemidiaphragm. Heart size enlarged, mediastinum prominent. Likely vascular congestion. Diffuse multilobar infiltrate is present, generally stable. Right pleural effusion likely smaller left pleural effusion. Lung doran may be very slightly improved in aeration. IMPRESSION: 1. Placement of the endotracheal tube and gastric tube. 2. Five lobed infiltrates could be reflective of pneumonia or edema. Right pleural effusion. Vascular congestion. Dictated by: Dictated on workstation # [id number]
--- NOTE | 2017-06-11 07:09 | Diagnostic Imaging Report ---
INDICATION: Order says "check tube placement" No catheter or tubes are identified. Right pleural effusion, vascular congestion, 5 lobe infiltrates or edema are present. There is no pneumothorax. IMPRESSION: There is overlying cardiac leads but no other support apparatus identified. There is right pleural effusion, cardiomegaly, vascular congestion, 5 lobed edema versus pneumonia. Dictated by: Dictated on workstation # [id number]
[2017-06-11] MEDS: RT-ALBUTEROL/IPRATROPIUM 3 ML (DUONEB) VIAL INH SCH ×5 (07:16→22:05)
[2017-06-11] MEDS: FUROSEMIDE 40 MG/4 ML INJ (LASIX) IVP SCH (08:13)
--- NOTE | 2017-06-11 08:26 | History & Physicial ---
History of Present Illness History of Present Illness Reason for visit/HPI PT IS A 76 Y/O MALE WHO IS INTUBATED, HE WAS SEEN IN THE EMERGENCY DEPARTMENT FOR ACUTE WORSENING OF HIS CHRONIC SHORTNESS OF BREATH. HE RECENTLY QUALIFIED FOR OXYGEN AND HAS BEEN WEARING THE OXYGEN, BUT DESPITE THE USE OF THE SUPPLEMENTAL OXYGEN, HE WAS SO SHORT OF BREATH THAT HIS HAD HIM TRANSPORTED TO THE HOSPITAL. HE WAS EVALUATED IN THE EMERGENCY DEPARTMENT, AND EVENTUALLY INTUBATED FOR PROTECTION OF THE AIRWAY. Date of Admission Jun 11, 2017 at 01:35 Date Seen by Provider: Jun 11, 2017 Time Seen by Provider: 08:22 I consulted on this patient on 06/11/17 08:21 Attending Physician Isrrael Teixeira MD Admitting Physician Isrrael Teixeira MD Consult Allergies and Home Medications Allergies Coded Allergies: No Known Drug Allergies (Unverified , 01/13/16) Home Medications Albuterol Sulfate 18 Gm Hfa.aer.ad, 2 PUFF INH QID PRN for SHORTNESS OF BREATH, (Reported) Apixaban 5 Mg Tablet, 5 MG PO BID, (Reported) Cyanocobalamin (Vitamin B-12) 1,000 Mcg Tablet, 1,000 MCG PO DAILY, (Reported) Diltiazem HCl 360 Mg Cap.er.24h, 360 MG PO DAILY, (Reported) Folic Acid 0.4 Mg Tablet, 0.4 MG PO DAILY, (Reported) Furosemide 40 Mg Tablet, 40 MG PO BID, (Reported) LAST FILLED #60 10-27-17 [place]-3/Dha/Epa/Fish Oil 1 Each Capsule, 1,000 MG PO DAILY, (Reported) Pantoprazole Sodium 40 Mg Tablet.dr, 40 MG PO DAILY, (Reported) Potassium Chloride 10 Meq Tablet.er, 10 MEQ PO DAILY, (Reported) Pravastatin Sodium 40 Mg Tablet, 40 MG PO HS, (Reported) Ropinirole HCl 0.5 Mg Tablet, 0.5 MG PO HS, (Reported) Umeclidinium [place] 62.5 Mcg Blst.w.dev, 1 PUFF INH DAILY, (Reported) Past Jbxrrpz-Hnmeng-Ddlpqm Hx Patient Social History Marrital Status: Number of Children: 0 Living Status: LIVES AT HOME WITH HIS SPOUSE Employed/Student: retired Alcohol Use: Denies Use Recreational Drug Use: No Smoking Status: Former Smoker Former Smoker, Quit: Jan 12, 2013 Type Used: Cigars 2nd Hand Smoke Exposure: No Physical Abuse Screen: No Sexual Abuse: No Recent Foreign Travel: No Contact w/other who traveled: No Recent Hopitalizations: No Recent Infectious Disease Expo: No Immunizations Up To Date Tetanus Booster (TDap): Unknown Pediatric: No Date of Pneumonia Vaccine: Oct 14, 2014 Date of Influenza Vaccine: Oct 06, 2014 Seasonal Allergies Seasonal Allergies: No Surgeries Yes (STENT IN R LEG, Cataract bilateral) Respiratory Yes COPD Currently Using CPAP: No Currently Using BIPAP: No Cardiovascular Yes (CHF X2, AORTIC STENOSIS) Atrial Fibrillation, Cardiomyopathy, High Cholesterol, Hypertension, Irregular Heartbeat, Peripheral Vascular, Valvular Heart Disease Neurological No Reproductive System Hx Reproductive Disorders: No Sexually Transmitted Disease: No HIV/AIDS: No Genitourinary No Gastrointestinal No Musculoskeletal Yes Arthritis, Rheumatoid Arthritis Endocrine History of Endocrine Disorders: No Are Your Blood Sugars Over 250: No HEENT HEENT Disorders: Cataract Loss of Vision: Denies Hearing Impairment: Denies Cancer No Psychosocial History of Psychiatric Problem: No Integumentary History of Skin or Integumenta: No Skin/Integumentary Disorders: Psoriasis Blood Transfusions History of Blood Disorders: No Adverse Reaction to a Blood Tr: No (N/A) Reviewed Nursing Assessment Reviewed/Agree w Nursing PMH: Yes Family Medical History Significant Family History: Heart Disease, Cancer Family Hx: FH: lung cancer 19 FATHER, Onset:60 years & older FHx: heart disease 19 MOTHER, Onset:60 years & older ROS-Unable to Obtain: UNABLE TO OBTAIN FROM PATIENT DUE TO HIS INTUBATED STATUS Constitutional: No chills, malaise All Other Systems Reviewed Negative Unless Noted: No Physical Exam Vital Signs Vital Sign - Last 12Hours 06/10/17 06/11/17 22:55 02:30 Temp 98.2 Pulse 110 Resp 34 B/P (MAP) 136/100 (112) Pulse Ox 98 O2 Delivery OxyMask O2 Flow Rate 10.00 FiO2 40 Capillary Refill : Less Than 3 Seconds General Appearance: Cachetic HEENT: PERRL/EOMI Respiratory: Crackles, Decreased Breath Sounds Cardiovascular: Systolic Murmur (III/ [place]) Gastrointestinal: Normal Bowel Sounds, No Organomegaly, Non Tender, Soft Rectal: Deferred Extremity: Normal Capillary Refill, No Calf Tenderness, No Pedal Edema Neurologic/Psychiatric: Other (SEDATED ON VENT) Skin: Warm/Dry Assessment/Plan Assessment and Plan ACUTE RESPIRATORY FAILURE CONGESTIVE HEART FAILURE SEVERE SEPSIS WITH METABOLIC LACTIC ACIDOSIS - SUSPECT PNEUMONIA COPD ATRIAL FIBRILLATION WITH RVR HYPOKALEMIA HYPOMAGNESEMIA ANEMIA ACUTE RESPIRATORY FAILURE - PT INTUBATED - DR. LOYD MANAGING CONGESTIVE HEART FAILURE - WITH ATRIAL FIBRILLATION WITH RVR - PT ON CARDIZEM DRIP - MONITOR OUTPUT, CONSULTATION TO CARDIOLOGY PLACED - DR. CUELLAR TO SEE PT TODAY. SEVERE SEPSIS WITH METABOLIC LACTIC ACIDOSIS - SUSPECT PNEUMONIA - WAITING ON CT OF CHEST WELL PENDING CULTURES OF BLOOD AND URINE - BROAD SPECTRUM ANTIBIOTIC TREATMENT INITIATED. COPD - CHRONIC - CONTINUE SUPPORTIVE CARE AT THIS TIME ON VENT - DEFER TO DR. LOYD ONCE PT OFF OF VENT. HYPOKALEMIA AND HYPOMAGNESEMIA - REPLACE WITH PROTOCOL, MONITOR ELECTROLYTES ANEMIA - 2 GRAM DROP SINCE ADMISSION - SUSPECT DILUTIONAL - MONITOR H AND H. DVT PROPHYLAXIS WITH LOVENOX GI PROPHYLAXIS WITH PEPCID IV. Problems: Admission Diagnosis ACUTE RESPIRATORY FAILURE CONGESTIVE HEART FAILURE SEVERE SEPSIS WITH METABOLIC LACTIC ACIDOSIS - SUSPECT PNEUMONIA COPD ATRIAL FIBRILLATION WITH RVR HYPOKALEMIA HYPOMAGNESEMIA ANEMIA Clinical Quality Measures DVT/VTE Risk/Contraindication: Risk Factor Score Per Nursin RFS Level Per Nursing on Admit: 4+=Very High ISRRAEL TEIXEIRA MD Jun 11, 2017 08:26
[2017-06-11] MEDS ORDERED: PIPERACILLIN SODIUM/TAZOBACTAM 4.5 GM in NS (IVPB) 100 ML IV NR (08:36)
[2017-06-11] MEDS ORDERED: FAMOTIDINE 20MG/2ML IV (PEPCID) IVP SCH (09:00)
[2017-06-11] MEDS ORDERED: VANCOMYCIN INJECTION 1,250 MG in NS (IVPB) 250 ML IV SCH (09:00)
--- NOTE | 2017-06-11 09:05 | Consultation-Cardiology ---
HPI-Cardiology Cardiology Consultation: Date of Consultation 06/11/17 Date of Admission Attending Physician Adalgisa Teixeira MD Admitting Physician Adalgisa Teixeira MD Consulting Physician Milagros Vazquez MD [id number] Hx Patient Social History Alcohol Use: Denies Use Recreational Drug Use: No Smoking Status: Former Smoker Former smoker/When Quit: Apr 13, 2013 Type Used: Cigars 2nd Hand Smoke Exposure: No Recent Foreign Travel: No Recent Infectious Disease Expo: No Hospitalization with Isolation: Denies Physical Abuse Screen: No Sexual Abuse: No Immunizations Up To Date Tetanus Booster (TDap): Unknown Date of Pneumonia Vaccine: Oct 14, 2014 Date of Influenza Vaccine: Oct 06, 2014 Past Medical History PMH As described under Assessment. Family Medical History Family History: FH: lung cancer 19 FATHER, Onset:60 years & older FHx: heart disease 19 MOTHER, Onset:60 years & older Allergies and Home Medications Allergies Coded Allergies: No Known Drug Allergies (Unverified , 01/13/16) Home Medications Albuterol Sulfate 18 Gm Hfa.aer.ad, 2 PUFF INH QID PRN for SHORTNESS OF BREATH, (Reported) Apixaban 5 Mg Tablet, 5 MG PO BID, (Reported) Cyanocobalamin (Vitamin B-12) 1,000 Mcg Tablet, 1,000 MCG PO DAILY, (Reported) Diltiazem HCl 360 Mg Cap.er.24h, 360 MG PO DAILY, (Reported) Folic Acid 0.4 Mg Tablet, 0.4 MG PO DAILY, (Reported) Furosemide 40 Mg Tablet, 40 MG PO BID, (Reported) LAST FILLED #60 04-27-17 [place]-3/Dha/Epa/Fish Oil 1 Each Capsule, 1,000 MG PO DAILY, (Reported) Pantoprazole Sodium 40 Mg Tablet.dr, 40 MG PO DAILY, (Reported) Potassium Chloride 10 Meq Tablet.er, 10 MEQ PO DAILY, (Reported) Pravastatin Sodium 40 Mg Tablet, 40 MG PO HS, (Reported) Ropinirole HCl 0.5 Mg Tablet, 0.5 MG PO HS, (Reported) Umeclidinium [place] 62.5 Mcg Blst.w.dev, 1 PUFF INH DAILY, (Reported) Physical Exam-Cardiology Physical Exam Vital Signs/I&O Vital Sign - Last 12Hours 06/11/17 06/11/17 06/11/17 06/11/17 02:11 02:25 02:28 02:29 Temp 98.0 97.8 97.8 Pulse 75 80 78 81 Resp 14 12 18 B/P (MAP) 109/53 99/61 (74) Pulse Ox 100 100 100 O2 Delivery Ambu Bag Mechanical Ventilator Mechanical Ventilator O2 Flow Rate 10.00 40.00 40.00 06/11/17 06/11/17 06/11/17 06/11/17 02:30 02:30 02:45 03:00 Pulse 76 79 81 Resp 9 17 22 B/P (MAP) 109/53 (71) 96/62 (73) 116/55 (75) Pulse Ox 100 100 99 99 O2 Delivery Mechanical Ventilator Mechanical Ventilator Mechanical Ventilator Mechanical Ventilator O2 Flow Rate 40.00 40.00 40.00 FiO2 40 06/11/17 06/11/17 06/11/17 06/11/17 03:03 03:15 03:30 03:43 Pulse 78 82 79 78 Resp 20 22 21 B/P (MAP) 110/60 (77) 106/57 (73) Pulse Ox 100 100 100 100 O2 Delivery Mechanical Ventilator Mechanical Ventilator O2 Flow Rate 40.00 40.00 FiO2 40 06/11/17 06/11/17 06/11/17 06/11/17 03:45 04:00 04:00 04:15 Temp 97.8 Pulse 75 75 75 Resp 23 20 19 B/P (MAP) 92/58 (69) 96/50 (65) 108/51 (70) Pulse Ox 100 100 100 100 O2 Delivery Mechanical Ventilator Mechanical Ventilator Mechanical Ventilator Mechanical Ventilator O2 Flow Rate 40.00 40.00 40.00 40.00 06/11/17 06/11/17 06/11/17 06/11/17 04:30 04:45 05:00 05:15 Pulse 63 70 73 62 Resp 23 19 25 14 B/P (MAP) 101/49 (66) 117/52 (73) 113/60 (77) 119/64 (82) Pulse Ox 94 94 100 100 O2 Delivery Mechanical Ventilator Mechanical Ventilator Mechanical Ventilator Mechanical Ventilator O2 Flow Rate 40.00 40.00 40.00 40.00 06/11/17 06/11/17 06/11/17 06/11/17 05:30 05:45 06:00 06:15 Pulse 64 74 75 71 Resp 23 22 24 20 B/P (MAP) 109/55 (73) 119/54 (75) 124/54 (77) 112/58 (76) Pulse Ox 98 100 100 100 O2 Delivery Mechanical Ventilator Mechanical Ventilator Mechanical Ventilator Mechanical Ventilator O2 Flow Rate 40.00 40.00 40.00 40.00 06/11/17 06/11/17 06/11/17 06/11/17 06:30 06:45 07:00 07:00 Pulse 68 75 75 66 Resp 27 22 21 B/P (MAP) 124/58 (80) 117/62 (80) 117/65 (82) Pulse Ox 100 100 100 O2 Delivery Mechanical Ventilator Mechanical Ventilator Mechanical Ventilator O2 Flow Rate 40.00 40.00 40.00 06/11/17 06/11/17 06/11/17 06/11/17 07:03 08:00 08:00 08:00 Temp 98.0 Pulse 80 75 Resp 22 21 B/P (MAP) 116/60 (78) Pulse Ox 100 100 100 O2 Delivery Mechanical Ventilator Mechanical Ventilator Mechanical Ventilator O2 Flow Rate 30.00 40.00 30.00 FiO2 40 06/11/17 06/11/17 06/11/17 06/11/17 08:23 10:45 12:00 12:18 Temp 97.8 Pulse 75 77 77 Resp 22 22 22 B/P (MAP) 120/60 Pulse Ox 100 97 100 92 O2 Delivery Mechanical Ventilator Mechanical Ventilator O2 Flow Rate 25.00 25.00 FiO2 30 25 06/11/17 06/11/17 13:00 13:01 Pulse 83 84 Resp 27 Pulse Ox 94 FiO2 25 Capillary Refill : Less Than 3 Seconds Skin: normal color, warm/dry Data Review Labs Laboratory Tests 06/10/17 22:50: White Blood Count 11.7H, Red Blood Count 4.55, Hemoglobin 14.4, Hematocrit 43, Mean Corpuscular Volume 95, Mean Corpuscular Hemoglobin 32, Mean Corpuscular Hemoglobin Concent 34, Red Cell Distribution Width 14.1, Platelet Count 266, Mean Platelet Volume 10.0, Neutrophils (%) (Auto) 62, Lymphocytes (%) (Auto) 25 , Monocytes (%) (Auto) 11, Eosinophils (%) (Auto) 2, Basophils (%) (Auto) 1, Neutrophils # (Auto) 7.2, Lymphocytes # (Auto) 2.9, Monocytes # (Auto) 1.3H, Eosinophils # (Auto) 0.2, Basophils # (Auto) 0.1, Prothrombin Time 16.6H, INR Comment 1.3, Activated Partial Thromboplast Time 36H, D-Dimer 1.53H, Sodium Level 142, Potassium Level 3.4L, Chloride Level 102, Carbon Dioxide Level 29, Anion Gap 11, Blood Urea Nitrogen 21H, Creatinine 1.42H, Estimat Glomerular Filtration Rate 49, BUN/Creatinine Ratio 15, Glucose Level 116H, Lactic Acid Level 2.09*H, Calcium Level 9.4, Magnesium Level 1.8, Total Bilirubin 0.6, Aspartate Amino Transf (AST/SGOT) 22, Alanine Aminotransferase (ALT/SGPT) 19, Alkaline Phosphatase 180H, Troponin I < 0.30, B-Type Natriuretic Peptide 3001.7H , Total Protein 7.8, Albumin 3.6 06/11/17 00:43: Troponin I < 0.30, Total Creatine Kinase 70, Creatine Kinase MB 3.9, Myoglobin 136.1H 06/11/17 00:50: Lactic Acid Level 6.87*H 06/11/17 01:13: Blood Gas Puncture Site LRAD, Blood Gas Patient Temperature 98.0, Arterial Blood pH 7.17*L, Arterial Blood Partial Pressure CO2 62H, Arterial Blood Partial Pressure O2 213H, Arterial Blood HCO3 22L, Arterial Blood Total CO2 24.0 , Arterial Blood Oxygen Saturation 99, Arterial Blood Base Excess -5.2L, Matthew Test YES-POS, Blood Gas Ventilator Setting YES, Blood Gas Inspired Oxygen 80 06/11/17 01:15: Urine Color YELLOW, Urine Clarity SLIGHTLY CLOUDY, Urine pH 5, Urine Specific [place] 1.025H, Urine Protein 3+H, Urine Glucose (UA) NEGATIVE, Urine Ketones NEGATIVE, Urine Nitrite NEGATIVE, Urine Bilirubin NEGATIVE, Urine Urobilinogen NORMAL, Urine Leukocyte Esterase 2+H, Urine RBC (Auto) 1+H, Urine RBC 0-2, Urine WBC 0-2, Urine Squamous Epithelial Cells RARE, Urine Crystals PRESENTH, Urine Amorphous Sediment LARGE SANDRA URATESH, Urine Bacteria TRACE, Urine Casts PRESENT, Urine Hyaline Casts 2-5H, Urine Mucus NEGATIVE, Urine Culture Indicated NO 06/11/17 04:40: Blood Gas Puncture Site LRAD, Blood Gas Patient Temperature 97.1, Arterial Blood pH 7.36L, Arterial Blood Partial Pressure CO2 44, Arterial Blood Partial Pressure O2 68L, Arterial Blood HCO3 24, Arterial Blood Total CO2 25.8, Arterial Blood Oxygen Saturation 96, Arterial Blood Base Excess -0.5, Matthew Test YES-POS, Blood Gas Ventilator Setting YES, Blood Gas Inspired Oxygen 40 06/11/17 04:45: White Blood Count 11.4H, Red Blood Count 3.93L, Hemoglobin 12.6L, Hematocrit 38L , Mean Corpuscular Volume 96, Mean Corpuscular Hemoglobin 32, Mean Corpuscular Hemoglobin Concent 33, Red Cell Distribution Width 14.0, Platelet Count 219, Mean Platelet Volume 10.3, Neutrophils (%) (Auto) 94H, Lymphocytes (%) (Auto) 4L , Monocytes (%) (Auto) 2, Eosinophils (%) (Auto) 0, Basophils (%) (Auto) 0, Neutrophils # (Auto) 10.7H, Lymphocytes # (Auto) 0.5L, Monocytes # (Auto) 0.3, Eosinophils # (Auto) 0.0, Basophils # (Auto) 0.0, Neutrophils % (Manual) 92, Lymphocytes % (Manual) 3, Monocytes % (Manual) 3, Eosinophils % (Manual) 0, Basophils % (Manual) 0, Band Neutrophils 0, Reactive Lymphocytes 2, Toxic Granulation 1+, Sodium Level 142, Potassium Level 3.1L, Chloride Level 104, Carbon Dioxide Level 24, Anion Gap 14, Blood Urea Nitrogen 21H, Creatinine 1.50H , Estimat Glomerular Filtration Rate 46, BUN/Creatinine Ratio 14, Glucose Level 193H, Lactic Acid Level 2.71*H, Calcium Level 8.3L, Phosphorus Level 2.4, Magnesium Level 1.4L, Total Bilirubin 0.9, Aspartate Amino Transf (AST/SGOT) 19 , Alanine Aminotransferase (ALT/SGPT) 16, Alkaline Phosphatase 146H, Total Protein 6.4, Albumin 2.9L 06/11/17 06:35: Lactic Acid Level 2.55*H, Troponin I < 0.30 06/11/17 10:43: Urine Color YELLOW, Urine Clarity VERY CLOUDYH, Urine pH 5, Urine Specific [place] 1.025H, Urine Protein 2+H, Urine Glucose (UA) 1+H, Urine Ketones NEGATIVE, Urine Nitrite NEGATIVE, Urine Bilirubin NEGATIVE, Urine Urobilinogen NORMAL, Urine Leukocyte Esterase 3+H, Urine RBC (Auto) 5+H, Urine RBC 25-50H, Urine WBC 50-100H, Urine Crystals NONE, Urine Amorphous Sediment LARGE SANDRA PHOSPHATEH, Urine Bacteria FEWH, Urine Casts PRESENT, Urine Coarse Granular Casts 5-10H, Urine Mucus NEGATIVE, Urine Culture Indicated YES Radiology NAME: [facility] REC#: [id number] PT STATUS: ADM IN : 1940 PHYSICIAN: YELENA JOHNSON MD ADMIT DATE: 06/11/17/ICU Draft Date of Exam:06/11/17 CHEST 1 VIEW, AP/PA ONLY INDICATION: Line placement. TECHNIQUE: Single view chest 2:07 AM. CORRELATION STUDY: 06/11/2017 FINDINGS: Since prior study, right-sided central line has been placed via the neck on the right. Tip over the expected location of the lower SVC. Enteric tube and gastric tube remain in place. Extensive five-lobed infiltrate is present. Heart size enlarged, mediastinum is ill-defined as is the vasculature. IMPRESSION: 1. Right IJ central line has been placed, tip appears to be projected over the low SVC. Endotracheal tube and gastric tube remain in place. Extensive five lobed infiltrate persisting. Dictated on workstation # [id number] Dict: 06/11/17 0634 Trans: 06/11/17 0645 MONICA [id number] Interpreted by: MISSY SAMSON DO Electronically signed by: NAME: [facility] REC#: [id number] PT STATUS: ADM IN : 1940 PHYSICIAN: YELENA JOHNSON MD ADMIT DATE: 06/11/17/ICU Signed Date of Exam: 06/10/17 CHEST 1 VIEW, AP/PA ONLY INDICATION: Order says "check tube placement" No catheter or tubes are identified. Right pleural effusion, vascular congestion, 5 lobe infiltrates or edema are present. There is no pneumothorax. IMPRESSION: There is overlying cardiac leads but no other support apparatus identified. There is right pleural effusion, cardiomegaly, vascular congestion, 5 lobed edema versus pneumonia. Dictated by: Dictated on workstation # [id number] Dict: 06/11/17 0651 Trans: 06/11/17 0721 Interpreted by: HOLLEY LOPEZ Electronically signed by: HOLLEY LOPEZ 06/11/17 0721 A/P-Cardiology Assessment/Admission Diagnosis Pneumonia with sepsis and respiratory failure Movement paucity disorder, recently diagnosed and managed as Parkinsonism by Dr Teixeira (Mar 2017) Atrial fibrillation - vent rate improved after recent treatment adjustment Chronic sys and montelongo CHF Chronic anticoagulation with Eliquis Nonischemic cardiomyopathy (probably alcohol related) in June 2007 with subsequent resolution. Echocardiography of November 2013 shows LVEF approx 50% Severe aortic stenosis. Echo of 02/15/16 shows ao valve area 0.7, peak gradient 46, mean gradient 28, LVEF 45-50%, MAC without MS, midl to mod MR, mild TR, mild AI, PASP 25 mmHg. He has not agreed to invasive management Pulmonary artery systolic pressure of estimated to be 30 to 35 mmHg per echocardiography from 08/29/2012. 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 Dyspnea on exertion, probably primarily due to COPD History of alcoholism and tobaccoism. He quit tobacco use in Aug 2013. Alcohol consumption currently is 1 beer twice a week, according to him. History of hyperkalemia when he was on a combination of PERNELL inhibitors and spironolactone. He has been able to tolerate PERNELL inhibitors without spironolactone. Chronic left infrascapular soft tissue mass for which he has chosen not to undergo any surgical intervention. Peripheral arterial disease with history of stenting of the right superficial femoral artery with Atrium 6.0 x 22-mm stent by Dr. Gupta in April 2008. On 03/15/15, he had Supera [id number] stent to the R SFA by Dr Jose. On peripheral angio of 04/13/15, there is diffuse moderate disease of the L SFA and ostial occlusion of the left peroneal and left ant tib.. The left post tibial is intact and provides good distal runoff. He does not report leg claucidation Hyperlipidemia being treated with pravastatin. 50% LICA AND 60% NIEVES stenoses on carotid u/s of September 2016 Hypertension Moderate coronary artery disease per cardiac catheterization of June,. Myocardial perfusion imaging study from August 2012, showed no evidence of significant myocardial ischemia or infarction. 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 We have advised him to continue to refrain from tobacco use Clinical Quality Measures DVT/VTE Risk/Contraindication: Risk Factor Score Per Nursin RFS Level Per Nursing on Admit: 4+=Very High ANATOLIY SALDIVAR Jun 11, 2017 09:05
--- NOTE | 2017-06-11 09:27 | Consultation-Cardiology ---
HPI-Cardiology Cardiology Consultation: Date of Consultation 06/11/17 Time Seen by Provider: 09:00 Date of Admission Attending Physician Adalgisa Teixeira MD Admitting Physician Adalgisa Teixeira MD Consulting Physician WILBUR CUELLAR MD, FACP, FACC, FSCAI, CCDS HPI: Chief Complaint: Reason for consultation: Shortness of breath 76 yo man who has been admitted to Dr Teixeira with rapidly progressive ac resp failure. [facility] and not able to provide history. is by bedside and able to relate history. Has been having increasing shortness of breath for two weeks. Was diagnosed with pneumonia and treated as outpatient, but symptoms progressed despite provision of home oxygen last week. Had not reported cp or palp. No syncope or leg swelling. Oral intake had been declining over several days and had had gen weakness and malaise and some wgt loss Review of Systems-Cardiology Review of Systems Constitutional: As described under HPI Eyes: No vision change Ears/Nose/Throat: No ear discharge, No nasal drainage, No recent hearing loss Respiratory: As described under HPI Cardiovascular: As described under HPI Gastrointestinal: No diarrhea, No nausea, No vomiting Genitourinary: No dysuria Musculoskeletal: back pain (chronic) Skin: No rash, No ulcerations Psychiatric/Neurological: No focal weakness, No syncope Hematologic: No bleeding abnormalities CSE-Zimaxv-Nulmzq Hx Patient Social History Alcohol Use: Denies Use Recreational Drug Use: No Smoking Status: Former Smoker Former smoker/When Quit: Apr 13, 2013 Type Used: Cigars 2nd Hand Smoke Exposure: No Recent Foreign Travel: No Recent Infectious Disease Expo: No Hospitalization with Isolation: Denies Physical Abuse Screen: No Sexual Abuse: No Immunizations Up To Date Tetanus Booster (TDap): Unknown Date of Pneumonia Vaccine: Oct 14, 2014 Date of Influenza Vaccine: Oct 06, 2014 Past Medical History PMH As described under Assessment. Family Medical History Family History: FH: lung cancer 19 FATHER, Onset:60 years & older FHx: heart disease 19 MOTHER, Onset:60 years & older Allergies and Home Medications Allergies Coded Allergies: No Known Drug Allergies (Unverified , 01/13/16) Home Medications Apixaban 5 Mg Tablet, 5 MG PO BID, (Reported) Cyanocobalamin 1,000 Mcg Tablet, 1,000 MCG PO DAILY, (Reported) Diltiazem HCl 240 Mg Cap.er.24h, 240 MG PO DAILY, (Reported) Enoxaparin Sodium 80 Mg/0.8 Ml Syringe, 70 MG SQ BID, (Reported) Fluticasone/Vilanterol 1 Each Blst.w.dev, 1 EACH IH DAILY, (Reported) Folic Acid 0.4 Mg Tablet, 0.4 MG PO DAILY, (Reported) Hydrocodone/Acetaminophen 1 Each Tablet, 1-2 EACH PO Q4H, #30 Prescribed by: MIKE CEVALLOS on 01/20/16 0904 Ipratropium [place] 21 Mcg [place], 2 SPRAYS NS BID PRN for ALLERGIES, (Reported) [place]-3/Dha/Epa/Fish Oil 1 Each Capsule.dr, 1,000 MG PO DAILY, (Reported) Pantoprazole Sodium 40 Mg Tablet.dr, (Reported) Potassium Chloride 10 Meq Tablet.er, (Reported) Pravastatin Sodium 40 Mg Tablet, 40 MG PO HS, (Reported) Ropinirole HCl 0.5 Mg Tablet, (Reported) Umeclidinium [place] 62.5 Mcg Blst.w.dev, (Reported) Physical Exam-Cardiology Physical Exam Vital Signs/I&O Vital Sign - Last 12Hours 06/10/17 06/10/17 06/10/17 06/10/17 22:55 22:55 23:25 23:29 Temp 98.2 Pulse 110 94 103 Resp 34 44 47 B/P (MAP) 136/100 (112) Pulse Ox 98 98 100 100 O2 Delivery OxyMask Room Air O2 Flow Rate 10.00 10.00 50.00 40.00 06/11/17 06/11/17 06/11/17 06/11/17 00:36 00:46 00:50 01:08 Temp 98.0 98.0 98.2 Pulse 98 98 Resp 22 22 B/P (MAP) 154/80 154/80 Pulse Ox 100 O2 Delivery Ambu-Bag OxyMask O2 Flow Rate 10.00 06/11/17 06/11/17 06/11/17 06/11/17 02:11 02:25 02:28 02:29 Temp 98.0 97.8 97.8 Pulse 75 80 78 81 Resp 14 12 18 B/P (MAP) 109/53 99/61 (74) Pulse Ox 100 100 100 O2 Delivery Ambu Bag Mechanical Ventilator Mechanical Ventilator O2 Flow Rate 10.00 40.00 40.00 06/11/17 06/11/17 06/11/17 06/11/17 02:30 02:30 02:45 03:00 Pulse 76 79 81 Resp 9 17 22 B/P (MAP) 109/53 (71) 96/62 (73) 116/55 (75) Pulse Ox 100 100 99 99 O2 Delivery Mechanical Ventilator Mechanical Ventilator Mechanical Ventilator Mechanical Ventilator O2 Flow Rate 40.00 40.00 40.00 FiO2 40 06/11/17 06/11/17 06/11/17 06/11/17 03:03 03:15 03:30 03:43 Pulse 78 82 79 78 Resp 20 22 21 B/P (MAP) 110/60 (77) 106/57 (73) Pulse Ox 100 100 100 100 O2 Delivery Mechanical Ventilator Mechanical Ventilator O2 Flow Rate 40.00 40.00 FiO2 40 06/11/17 06/11/17 06/11/17 06/11/17 03:45 04:00 04:00 04:15 Temp 97.8 Pulse 75 75 75 Resp 23 20 19 B/P (MAP) 92/58 (69) 96/50 (65) 108/51 (70) Pulse Ox 100 100 100 100 O2 Delivery Mechanical Ventilator Mechanical Ventilator Mechanical Ventilator Mechanical Ventilator O2 Flow Rate 40.00 40.00 40.00 40.00 06/11/17 06/11/17 06/11/17 06/11/17 04:30 04:45 05:00 05:15 Pulse 63 70 73 62 Resp 23 19 25 14 B/P (MAP) 101/49 (66) 117/52 (73) 113/60 (77) 119/64 (82) Pulse Ox 94 94 100 100 O2 Delivery Mechanical Ventilator Mechanical Ventilator Mechanical Ventilator Mechanical Ventilator O2 Flow Rate 40.00 40.00 40.00 40.00 06/11/17 06/11/17 06/11/17 06/11/17 05:30 05:45 06:00 06:15 Pulse 64 74 75 71 Resp 23 22 24 20 B/P (MAP) 109/55 (73) 119/54 (75) 124/54 (77) 112/58 (76) Pulse Ox 98 100 100 100 O2 Delivery Mechanical Ventilator Mechanical Ventilator Mechanical Ventilator Mechanical Ventilator O2 Flow Rate 40.00 40.00 40.00 40.00 06/11/17 06/11/17 06/11/1711/17 06:30 06:45 07:00 07:00 Pulse 68 75 75 66 Resp 27 22 21 B/P (MAP) 124/58 (80) 117/62 (80) 117/65 (82) Pulse Ox 100 100 100 O2 Delivery Mechanical Ventilator Mechanical Ventilator Mechanical Ventilator O2 Flow Rate 40.00 40.00 40.00 06/11/17 06/11/17 06/11/17 07:03 08:00 08:23 Pulse 80 75 75 Resp 22 21 22 B/P (MAP) 116/60 (78) Pulse Ox 100 100 100 O2 Delivery Mechanical Ventilator O2 Flow Rate 40.00 FiO2 40 30 Capillary Refill : Less Than 3 Seconds Constitutional: other (intubated, sedated, on mech vent) HEENT: PERRL, No xanthelasmas are seen Neck: carotid pulses are 2 + bilaterally, with good upstrokes Respiratory: No accessory muscle use, other (good bilat air entry, but diminished at the bases and some large airway rhonchi) Cardiovascular: irregularly irregular, S1 and S2, systolic murmur (faint [place] at card base) Gastrointestinal: No tender, No guarding, No rebound, audible bowel sounds Extremities: No clubbing, No cyanosis, No significant edema Neurologic/Psychiatric: other (intubated, sedated, not able to cooperate with neuro exam) Skin: normal color, warm/dry, No rash on exposed areas, No ulcerations on exposed areas Data Review Labs Laboratory Tests 06/10/17 22:50: White Blood Count 11.7H, Red Blood Count 4.55, Hemoglobin 14.4, Hematocrit 43, Mean Corpuscular Volume 95, Mean Corpuscular Hemoglobin 32, Mean Corpuscular Hemoglobin Concent 34, Red Cell Distribution Width 14.1, Platelet Count 266, Mean Platelet Volume 10.0, Neutrophils (%) (Auto) 62, Lymphocytes (%) (Auto) 25 , Monocytes (%) (Auto) 11, Eosinophils (%) (Auto) 2, Basophils (%) (Auto) 1, Neutrophils # (Auto) 7.2, Lymphocytes # (Auto) 2.9, Monocytes # (Auto) 1.3H, Eosinophils # (Auto) 0.2, Basophils # (Auto) 0.1, Prothrombin Time 16.6H, INR Comment 1.3, Activated Partial Thromboplast Time 36H, D-Dimer 1.53H, Sodium Level 142, Potassium Level 3.4L, Chloride Level 102, Carbon Dioxide Level 29, Anion Gap 11, Blood Urea Nitrogen 21H, Creatinine 1.42H, Estimat Glomerular Filtration Rate 49, BUN/Creatinine Ratio 15, Glucose Level 116H, Lactic Acid Level 2.09*H, Calcium Level 9.4, Magnesium Level 1.8, Total Bilirubin 0.6, Aspartate Amino Transf (AST/SGOT) 22, Alanine Aminotransferase (ALT/SGPT) 19, Alkaline Phosphatase 180H, Troponin I < 0.30, B-Type Natriuretic Peptide 3001.7H , Total Protein 7.8, Albumin 3.6 06/11/17 00:43: Troponin I < 0.30, Total Creatine Kinase 70, Creatine Kinase MB 3.9, Myoglobin 136.1H 06/11/17 00:50: Lactic Acid Level 6.87*H 06/11/17 01:13: Blood Gas Puncture Site LRAD, Blood Gas Patient Temperature 98.0, Arterial Blood pH 7.17*L, Arterial Blood Partial Pressure CO2 62H, Arterial Blood Partial Pressure O2 213H, Arterial Blood HCO3 22L, Arterial Blood Total CO2 24.0 , Arterial Blood Oxygen Saturation 99, Arterial Blood Base Excess -5.2L, Matthew Test YES-POS, Blood Gas Ventilator Setting YES, Blood Gas Inspired Oxygen 80 06/11/17 01:15: Urine Color YELLOW, Urine Clarity SLIGHTLY CLOUDY, Urine pH 5, Urine Specific [place] 1.025H, Urine Protein 3+H, Urine Glucose (UA) NEGATIVE, Urine Ketones NEGATIVE, Urine Nitrite NEGATIVE, Urine Bilirubin NEGATIVE, Urine Urobilinogen NORMAL, Urine Leukocyte Esterase 2+H, Urine RBC (Auto) 1+H, Urine RBC 0-2, Urine WBC 0-2, Urine Squamous Epithelial Cells RARE, Urine Crystals PRESENTH, Urine Amorphous Sediment LARGE SANDRA URATESH, Urine Bacteria TRACE, Urine Casts PRESENT, Urine Hyaline Casts 2-5H, Urine Mucus NEGATIVE, Urine Culture Indicated NO 06/11/17 04:40: Blood Gas Puncture Site LRAD, Blood Gas Patient Temperature 97.1, Arterial Blood pH 7.36L, Arterial Blood Partial Pressure CO2 44, Arterial Blood Partial Pressure O2 68L, Arterial Blood HCO3 24, Arterial Blood Total CO2 25.8, Arterial Blood Oxygen Saturation 96, Arterial Blood Base Excess -0.5, Matthew Test YES-POS, Blood Gas Ventilator Setting YES, Blood Gas Inspired Oxygen 40 06/11/17 04:45: White Blood Count 11.4H, Red Blood Count 3.93L, Hemoglobin 12.6L, Hematocrit 38L , Mean Corpuscular Volume 96, Mean Corpuscular Hemoglobin 32, Mean Corpuscular Hemoglobin Concent 33, Red Cell Distribution Width 14.0, Platelet Count 219, Mean Platelet Volume 10.3, Neutrophils (%) (Auto) 94H, Lymphocytes (%) (Auto) 4L , Monocytes (%) (Auto) 2, Eosinophils (%) (Auto) 0, Basophils (%) (Auto) 0, Neutrophils # (Auto) 10.7H, Lymphocytes # (Auto) 0.5L, Monocytes # (Auto) 0.3, Eosinophils # (Auto) 0.0, Basophils # (Auto) 0.0, Neutrophils % (Manual) 92, Lymphocytes % (Manual) 3, Monocytes % (Manual) 3, Eosinophils % (Manual) 0, Basophils % (Manual) 0, Band Neutrophils 0, Reactive Lymphocytes 2, Toxic Granulation 1+, Sodium Level 142, Potassium Level 3.1L, Chloride Level 104, Carbon Dioxide Level 24, Anion Gap 14, Blood Urea Nitrogen 21H, Creatinine 1.50H , Estimat Glomerular Filtration Rate 46, BUN/Creatinine Ratio 14, Glucose Level 193H, Lactic Acid Level 2.71*H, Calcium Level 8.3L, Phosphorus Level 2.4, Magnesium Level 1.4L, Total Bilirubin 0.9, Aspartate Amino Transf (AST/SGOT) 19 , Alanine Aminotransferase (ALT/SGPT) 16, Alkaline Phosphatase 146H, Total Protein 6.4, Albumin 2.9L 06/11/17 06:35: Lactic Acid Level 2.55*H, Troponin I < 0.30 Laboratory Tests 06/10/17 22:50 06/11/17 04:45 A/P-Cardiology Assessment/Admission Diagnosis Pneumonia with sepsis and acute respiratory failure Acute renal failure Movement paucity disorder, recently diagnosed and managed as Parkinsonism by Dr Teixeira (Mar 2017) Atrial fibrillation - controlled vent rate Chronic sys and montelongo CHF Chronic anticoagulation with Eliquis Nonischemic cardiomyopathy (probably alcohol related) in June 2007 with subsequent resolution. Echocardiography of November 2013 shows LVEF approx 50% Severe aortic stenosis. Echo of 02/15/16 shows ao valve area 0.7, peak gradient 46, mean gradient 28, LVEF 45-50%, MAC without MS, midl to mod MR, mild TR, mild AI, PASP 25 mmHg. He has not agreed to invasive management Pulmonary artery systolic pressure of estimated to be 30 to 35 mmHg per echocardiography from 08/29/2012. 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 Dyspnea on exertion, probably primarily due to COPD History of alcoholism and tobaccoism. He quit tobacco use in Aug 2013. Alcohol consumption currently is 1 beer twice a week, according to him. History of hyperkalemia when he was on a combination of PERNELL inhibitors and spironolactone. He has been able to tolerate PERNELL inhibitors without spironolactone. Chronic left infrascapular soft tissue mass for which he has chosen not to undergo any surgical intervention. Peripheral arterial disease with history of stenting of the right superficial femoral artery with Atrium 6.0 x 22-mm stent by Dr. Gupta in April 2008. On 03/15/15, he had Supera [id number] stent to the R SFA by Dr Jose. On peripheral angio of 04/13/15, there is diffuse moderate disease of the L SFA and ostial occlusion of the left peroneal and left ant tib.. The left post tibial is intact and provides good distal runoff. He does not report leg claucidation Hyperlipidemia being treated with pravastatin. 50% LICA AND 60% NIEVES stenoses on carotid u/s of September 2016 Hypertension Moderate coronary artery disease per cardiac catheterization of June,. Myocardial perfusion imaging study from August 2012, showed no evidence of significant myocardial ischemia or infarction. 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 We have advised him to continue to refrain from tobacco use Discussion and Recomendations * Currently critically ill * Continue treatment for ac resp failure and pneumonia * iv fluids * Replenish K * Monitor labs * Enoxaparin (adjusted for renal failure) while off oral apixaban Clinical Quality Measures DVT/VTE Risk/Contraindication: Risk Factor Score Per Nursin RFS Level Per Nursing on Admit: 4+=Very High WILBUR CUELLAR MD FACP FAC CCDS Jun 11, 2017 09:26
--- NOTE | 2017-06-11 09:37 | Physical Therapy Progress Note ---
Therapy Progress Note Patient is currently sedated and on ventilator. PT will await further orders when patient is medically stable and able to actively participate with skilled PT. AUREA DODD PT Jun 11, 2017 09:37
[2017-06-11] MEDS ORDERED: FOLI0.4T2 PO (09:43)
[2017-06-11] MEDS ORDERED: PRAV40TA2 PO (09:43)
[2017-06-11] MEDS ORDERED: DILT360C29 PO (09:43)
[2017-06-11] MEDS ORDERED: CYAN100088 PO (09:43)
[2017-06-11] MEDS ORDERED: OMEG-160 PO (09:43)
[2017-06-11] MEDS ORDERED: FURO40TA4 PO (09:46)
[2017-06-11] MEDS ORDERED: ALBU18HF2 INH (09:46)
[2017-06-11] MEDS: ENOXAPARIN 40 MG/0.4 ML (LOVENOX) SYR SC SCH (10:34)
[2017-06-11 10:54] LABS: BILIRUBIN,URINE NEGATIVE (NEGATIVE); KETONES,URINE NEGATIVE (NEGATIVE); LEUKOCYTE ESTERASE ,URINE 3+ (NEGATIVE); NITRITE,URINE NEGATIVE (NEGATIVE); PH,URINE 5 (5-9); PROTEIN,URINE 2+ (NEGATIVE); UROBILINOGEN,URINE NORMAL (NORMAL)
[2017-06-11 11:03] LABS: WBC,URINE 50-100 /HPF
[2017-06-11] MEDS: PROPOFOL DRIP (ICU) 100 ML IV SCH ×2 (12:18→23:57)
[2017-06-11] MEDS: methylPREDNISolone 40 MG/ML (Solu-MEDROL) VIAL IV SCH ×3 (12:21→23:57)
--- NOTE | 2017-06-11 12:36 | Diagnostic Imaging Report ---
PROCEDURE: CT chest without contrast. TECHNIQUE: Multiple contiguous axial images were obtained through the chest without the use of intravenous contrast. INDICATION: Severe sepsis. FINDINGS: ET tube is seen in the distal trachea and an NG tube is noted terminating in the stomach. There are bilateral pleural effusions larger on the right and moderate to large on the left with bilateral lower lobe atelectasis and patchy areas of consolidation in the upper lobes. There is a breathing motion artifact which may obscure subtle abnormality. The pleural effusions appears to be simple and nonloculated with no suggestion of thickened wall to suggest a mature empyema. The heart size is moderately enlarged with particularly dilated left ventricle. Prominent coronary artery calcifications are seen. Mildly enlarged mediastinal lymph nodes are noted. These are likely reactive. No axillary lymphadenopathy seen. There is an infusion port through the right internal jugular vein terminating in the SVC. Sections in the upper abdomen demonstrate suggestion of generalized interstitial edema, although evaluation is degraded by motion artifact. The osseous structures appear grossly unremarkable. IMPRESSION: Bilateral effusions larger on the right and moderate to large on the left with areas of atelectasis and consolidation in the lungs. No CT evidence of loculation effusions. Dictated by: Dictated on workstation # [id number]
--- NOTE | 2017-06-11 13:24 | Occ Therapy Progress Note ---
Therapy Progress Note 1315 Per MONTEZ Gay, pt is still sedated and on vent. Will continue to follow until he is able to participate in OT. FAUSTINO ROLLE OT Jun 11, 2017 13:24
[2017-06-11] MEDS: PIPERACILLIN SODIUM/TAZOBACTAM 4.5 GM in NS (IVPB) 100 ML IV SCH ×2 (15:19→22:31)
[2017-06-11] MEDS ORDERED: NS IV 1000 ML 1,000 ML IV SCH (15:30)
[2017-06-11] MEDS: DILTIAZEM IV FOR DRIP 125 MG in NS (IVPB) 100 ML IV SCH (20:16)
[2017-06-11] MEDS ORDERED: cefTRIAXone INJECTION 1,000 MG in NS (IVPB) 50 ML IV SCH (23:00)
[2017-06-11] MEDS: inSUlin (REGULAR) HUMAN 1 UNIT/0.01 ML (CHARGE PER UNIT) SC SCH (23:56)
[2017-06-12] VITALS (35 sets, daily range): BP systolic 94–130; BP diastolic 55–85
[2017-06-12] MEDS: inSUlin (REGULAR) HUMAN 1 UNIT/0.01 ML (CHARGE PER UNIT) SC SCH ×3 (00:25→18:38)
[2017-06-12] MEDS: NS IV 1000 ML 1,000 ML IV SCH ×2 (02:31→09:25)
[2017-06-12] MEDS: RT-ALBUTEROL/IPRATROPIUM 3 ML (DUONEB) VIAL INH SCH ×6 (02:42→22:16)
[2017-06-12] MEDS: DILTIAZEM IV FOR DRIP 125 MG in NS (IVPB) 100 ML IV SCH ×2 (03:58→17:13)
[2017-06-12 04:55] LABS: BASOPHILS % (AUTO) 0 % (0-10); EOSINOPHILS % (AUTO) 0 % (0-10); LYMPHOCYTES # (AUTO) 0.6 X 10^3 (1.0-4.0); LYMPHOCYTES % (AUTO) 3 % (12-44); MEAN CORPUSCULAR HEMOGLOBIN 32 PG (25-34); MEAN CORPUSCULAR HGB CONC 34 G/DL (32-36); MEAN CORPUSCULAR VOLUME 95 FL (80-99); MEAN PLATELET VOLUME 10.5 FL (7.4-10.4); MONOCYTES # (AUTO) 0.8 X 10^3 (0.0-1.0); MONOCYTES % (AUTO) 5 % (0-12); NEUTROPHILS # (AUTO) 16.3 X 10^3 (1.8-7.8); NEUTROPHILS % (AUTO) 92 % (42-75); PLATELET COUNT 229 10^3/uL (130-400); RED CELL DISTRIBUTION WIDTH 14.6 % (10.0-14.5); WHITE BLOOD COUNT 17.6 10^3/uL (4.3-11.0)
[2017-06-12 05:09] LABS: ALBUMIN 2.8 GM/DL (3.2-4.5); BILIRUBIN,TOTAL 0.6 MG/DL (0.1-1.0); CALCIUM 7.9 MG/DL (8.5-10.1); CREATININE SERUM 1.36 MG/DL (0.60-1.30); PHOSPHORUS 3.6 MG/DL (2.3-4.7); POTASSIUM 3.8 MMOL/L (3.6-5.0); TOTAL PROTEIN 5.6 GM/DL (6.4-8.2)
[2017-06-12] MEDS: MAGNESIUM 1 GM/100 ML IVPB 100 ML IV SCH (05:33)
[2017-06-12] MEDS: POTASSIUM CL 10MEQ/50ML IVPB 50 ML IV SCH (05:33)
[2017-06-12] MEDS: KCL 20 MEQ TAB (K-DUR) PO SCH (05:33)
[2017-06-12] MEDS: methylPREDNISolone 40 MG/ML (Solu-MEDROL) VIAL IV SCH ×4 (05:34→23:44)
[2017-06-12] MEDS: PIPERACILLIN SODIUM/TAZOBACTAM 4.5 GM in NS (IVPB) 100 ML IV SCH ×3 (05:34→22:20)
[2017-06-12 05:36] LABS: BAND NEUTROPHILS 1 %; BASOPHILS % (MANUAL) 0 %; EOSINOPHILS % (MANUAL) 0 %; LYMPHOCYTES % (MANUAL) 2 %; NEUTROPHILS % (MANUAL) 95 %
[2017-06-12 05:37] LABS: ANISOCYTOSIS SLIGHT
[2017-06-12 06:10] LABS: ABG BASE EXCESS -4.2 MMOL/L (-2.5-2.5); ABG HCO3 20 MMOL/L (23-27); ABG OXYGEN SATURATION 89 % (94-100); ABG PCO2 37 MMHG (35-45); ABG PH 7.36 (7.37-7.43); ABG PO2 52 MMHG (79-93); ABG TCO2 21.6 MMOL/L (21.0-31.0)
[2017-06-12 06:11] LABS: ALLENS TEST YES-POS; PATIENT TEMP 98.4
--- NOTE | 2017-06-12 07:42 | Pulmonary Progress Note ---
Subjective Time Seen by Provider: 07:41 Subjective/Events-last exam PT is sedated on vent currently Exam Exam Vital Signs Date Time Temp Pulse Resp B/P (MAP) Pulse Ox O2 Delivery O2 Flow Rate FiO2 06/12/17 06:25 30 06/12/17 06:15 100 34 94 30 06/12/17 06:00 95 27 99/69 (79) 98 Mechanical Ventilator 30.00 06/12/17 05:30 92 22 95 30 06/12/17 05:00 90 22 94/56 (69) 95 Mechanical Ventilator 30.00 06/12/17 04:30 96 24 114/62 (79) 94 Mechanical Ventilator 30.00 06/12/17 04:00 91 Mechanical Ventilator 25.00 06/12/17 04:00 98.6 95 19 97/61 (73) 91 Mechanical Ventilator 25.00 06/12/17 03:58 95 106/58 06/12/17 03:00 97 20 108/57 (74) 92 Mechanical Ventilator 25.00 06/12/17 02:42 91 23 93 25 06/12/17 02:00 105 29 109/62 (78) 95 Mechanical Ventilator 25.00 06/12/17 01:00 100 23 130/67 (88) 92 Mechanical Ventilator 25.00 06/12/17 01:00 100 06/12/17 00:19 98 23 93 25 06/12/17 00:05 97 Mechanical Ventilator 25.00 06/12/17 00:00 98.4 103 21 107/65 (79) 97 Mechanical Ventilator 25.00 06/11/17 23:57 107/69 06/11/17 23:00 96 20 103/61 (75) 92 Mechanical Ventilator 25.00 06/11/17 22:05 92 24 95 25 06/11/17 22:00 92 20 99/77 (84) 95 Mechanical Ventilator 25.00 06/11/17 21:00 99 29 114/73 (87) 94 Mechanical Ventilator 25.00 06/11/17 20:17 102 28 95 25 06/11/17 20:16 109 24 118/84 95 Mechanical Ventilator 25.00 06/11/17 20:00 103 17 111/72 (85) 93 Mechanical Ventilator 25.00 06/11/17 19:50 95 Mechanical Ventilator 25.00 06/11/17 19:00 107 06/11/17 19:00 98.5 102 28 97/74 (82) 95 Mechanical Ventilator 25.00 06/11/17 18:09 89 22 95 25 06/11/17 18:00 93 20 130/70 (90) 97 Mechanical Ventilator 25.00 06/11/17 17:00 94 32 114/66 (82) 94 Mechanical Ventilator 25.00 06/11/17 16:33 95 20 95 25 06/11/17 16:00 100 Mechanical Ventilator 25.00 06/11/17 16:00 96 28 129/68 (88) 93 Mechanical Ventilator 25.00 06/11/17 15:18 Mechanical Ventilator 25.00 06/11/17 15:00 84 21 122/69 (86) 98 Mechanical Ventilator 30.00 06/11/17 14:53 85 21 97 25 06/11/17 14:00 85 21 120/65 (83) 97 Mechanical Ventilator 30.00 06/11/17 13:01 84 27 94 25 06/11/17 13:00 86 22 123/60 (81) 94 Mechanical Ventilator 30.00 06/11/17 13:00 83 06/11/17 12:18 97.8 77 22 120/60 92 Mechanical Ventilator 25.00 06/11/17 12:00 100 Mechanical Ventilator 25.00 06/11/17 12:00 80 18 112/64 (80) 91 Mechanical Ventilator 30.00 06/11/17 12:00 97.0 Mechanical Ventilator 25.00 06/11/17 11:00 79 20 106/59 (75) 90 Mechanical Ventilator 30.00 06/11/17 10:45 77 22 97 25 06/11/17 10:00 74 22 118/62 (80) 100 Mechanical Ventilator 30.00 06/11/17 09:00 71 22 116/61 (79) 100 Mechanical Ventilator 30.00 06/11/17 08:23 75 22 100 30 06/11/17 08:00 98.0 Mechanical Ventilator 30.00 06/11/17 08:00 75 21 116/60 (78) 100 Mechanical Ventilator 40.00 06/11/17 08:00 100 Mechanical Ventilator 30.00 I & O 06/12/17 06:59 Intake Total 7347 ml Output Total 1005 ml Balance 6342 ml General Appearance: No Apparent Distress Respiratory: Chest Non Tender, Respiratory Distress, Wheezing, Other ( orotracheally intubated with a 7.5 at 24 at the lips.) Cardiovascular: Regular Rate, Rhythm, No Edema, Normal Peripheral Pulses, Other (color has improved significantly in the distal extremities. No cyanosis.) Capillary Refill: Less Than 3 Seconds Peripheral Pulses: 2+ Dorsalis Pedis (R), 2+ Left Dors-Pedis (L), 2+ Radial Pulses (R), 2+ Radial Pulses (L) Gastrointestinal: normal bowel sounds, non tender, soft, No mass Neurologic/Psychiatric: Other (sedated ) Skin: Normal Color, Warm/Dry Lymphatic: No Adenopathy Results Lab Laboratory Tests 06/10/17 22:50 06/11/17 04:45 06/12/17 04:15 Assessment/Plan Assessment/Plan Severe sepsis with pneumonia - failed outpatient treatment -D/C vanco and continue Zosyn -IVF -sebastian cultures reviewed - influenza - negative - CT of chest without contrast -- reviewed Bilateral Right > left pleural effusions -decrease IVF to 50cc/hr -Check BNP -IF lactic acid is back to normal will give lasix Acute on chronic respiratory failure -continue ventilatory support -will trial pt on BiPAP mode. -SVNS -decrease solumedrol to 40 Q 6 Hematuria -hold lovenox -consult Dr. Longo if ok with Dr. Teixeira Hypotension - resolved Acute renal failure -IMproved Metabolic lactic acidosis -repeat LA -IVF 233 Clinical Quality Measures DVT/VTE Risk/Contraindication: Risk Factor Score Per Nursin RFS Level Per Nursing on Admit: 4+=Very High ELLYN LOYD DO Jun 12, 2017 07:41
[2017-06-12 07:51] LABS: ABG BASE EXCESS -5.5 MMOL/L (-2.5-2.5); ABG HCO3 19 MMOL/L (23-27); ABG OXYGEN SATURATION 84 % (94-100); ABG PCO2 35 MMHG (35-45); ABG PH 7.35 (7.37-7.43); ABG PO2 48 MMHG (79-93); ABG TCO2 20.1 MMOL/L (21.0-31.0)
[2017-06-12 07:52] LABS: ALLENS TEST YES-POS; PATIENT TEMP 98.6
--- NOTE | 2017-06-12 08:00 | Physical Therapy Progress Note ---
Therapy Progress Note Patient is currently sedated and on ventilator. No skilled PT indicated at this time. Will continue to monitor medical status. AUREA DODD PT Jun 12, 2017 08:00
--- NOTE | 2017-06-12 08:14 | Progress Note (SOAP) ---
Subjective Date Seen by Provider: Jun 12, 2017 Time Seen by Provider: 08:10 Subjective/Events-last exam PT IS INTUBATED. I TALKED TO HIS TODAY - SHE REPORTS THAT HE APPEARED TO BE COMFORTABLE YESTERDAY. STAFF REPORTS LITTLE TO NO MANAGER MEDICARE THE PAST DAY. TECHNICAL SUPPORT CONSULTANT IN ROOM AND REPORTS THAT HIS EJECTION FRACTION APPEARS TO BE QUITE LOW - WILL DEFER TO READ BY AFTERNOON NANNY. Review of Systems General: Fatigue Pulmonary: Other (PT INTUBATED) Neurological: Weakness PT INTUBATED Objective Exam Vital Signs Date Time Temp Pulse Resp B/P (MAP) Pulse Ox O2 Delivery O2 Flow Rate FiO2 06/12/17 07:00 122 06/12/17 06:25 30 06/12/17 06:15 100 34 94 30 06/12/17 06:00 95 27 99/69 (79) 98 Mechanical Ventilator 30.00 06/12/17 05:30 92 22 95 30 06/12/17 05:00 90 22 94/56 (69) 95 Mechanical Ventilator 30.00 06/12/17 04:30 96 24 114/62 (79) 94 Mechanical Ventilator 30.00 06/12/17 04:00 91 Mechanical Ventilator 25.00 06/12/17 04:00 98.6 95 19 97/61 (73) 91 Mechanical Ventilator 25.00 06/12/17 03:58 95 106/58 06/12/17 03:00 97 20 108/57 (74) 92 Mechanical Ventilator 25.00 06/12/17 02:42 91 23 93 25 06/12/17 02:00 105 29 109/62 (78) 95 Mechanical Ventilator 25.00 06/12/17 01:00 100 23 130/67 (88) 92 Mechanical Ventilator 25.00 06/12/17 01:00 100 06/12/17 00:19 98 23 93 25 06/12/17 00:05 97 Mechanical Ventilator 25.00 06/12/17 00:00 98.4 103 21 107/65 (79) 97 Mechanical Ventilator 25.00 06/11/17 23:57 107/69 06/11/17 23:00 96 20 103/61 (75) 92 Mechanical Ventilator 25.00 06/11/17 22:05 92 24 95 25 06/11/17 22:00 92 20 99/77 (84) 95 Mechanical Ventilator 25.00 06/11/17 21:00 99 29 114/73 (87) 94 Mechanical Ventilator 25.00 06/11/17 20:17 102 28 95 25 06/11/17 20:16 109 24 118/84 95 Mechanical Ventilator 25.00 06/11/17 20:00 103 17 111/72 (85) 93 Mechanical Ventilator 25.00 06/11/17 19:50 95 Mechanical Ventilator 25.00 06/11/17 19:00 107 06/11/17 19:00 98.5 102 28 97/74 (82) 95 Mechanical Ventilator 25.00 06/11/17 18:09 89 22 95 25 06/11/17 18:00 93 20 130/70 (90) 97 Mechanical Ventilator 25.00 06/11/17 17:00 94 32 114/66 (82) 94 Mechanical Ventilator 25.00 06/11/17 16:33 95 20 95 25 06/11/17 16:00 100 Mechanical Ventilator 25.00 06/11/17 16:00 96 28 129/68 (88) 93 Mechanical Ventilator 25.00 06/11/17 15:18 Mechanical Ventilator 25.00 06/11/17 15:00 84 21 122/69 (86) 98 Mechanical Ventilator 30.00 06/11/17 14:53 85 21 97 25 06/11/17 14:00 85 21 120/65 (83) 97 Mechanical Ventilator 30.00 06/11/17 13:01 84 27 94 25 06/11/17 13:00 86 22 123/60 (81) 94 Mechanical Ventilator 30.00 06/11/17 13:00 83 06/11/17 12:18 97.8 77 22 120/60 92 Mechanical Ventilator 25.00 06/11/17 12:00 100 Mechanical Ventilator 25.00 06/11/17 12:00 80 18 112/64 (80) 91 Mechanical Ventilator 30.00 06/11/17 12:00 97.0 Mechanical Ventilator 25.00 06/11/17 11:00 79 20 106/59 (75) 90 Mechanical Ventilator 30.00 06/11/17 10:45 77 22 97 25 06/11/17 10:00 74 22 118/62 (80) 100 Mechanical Ventilator 30.00 06/11/17 09:00 71 22 116/61 (79) 100 Mechanical Ventilator 30.00 06/11/17 08:23 75 22 100 30 I & O 06/12/17 07:00 Intake Total 6347 ml Output Total 1005 ml Balance 5342 ml Capillary Refill : Less Than 3 Seconds General Appearance: Cachetic Neck: Supple Respiratory: Chest Non Tender, Decreased Breath Sounds Cardiovascular: Systolic Murmur Gastrointestinal: normal bowel sounds, soft Extremity: Non Tender, No Calf Tenderness, No Pedal Edema Neurologic/Psychiatric: Alert, Other (SEDATED) Skin: Warm/Dry Results Lab Laboratory Tests 06/11/17 10:43: Urine Color YELLOW, Urine Clarity VERY CLOUDYH, Urine pH 5, Urine Specific [place] 1.025H, Urine Protein 2+H, Urine Glucose (UA) 1+H, Urine Ketones NEGATIVE, Urine Nitrite NEGATIVE, Urine Bilirubin NEGATIVE, Urine Urobilinogen NORMAL, Urine Leukocyte Esterase 3+H, Urine RBC (Auto) 5+H, Urine RBC 25-50H, Urine WBC 50-100H, Urine Crystals NONE, Urine Amorphous Sediment LARGE SANDRA PHOSPHATEH, Urine Bacteria FEWH, Urine Casts PRESENT, Urine Coarse Granular Casts 5-10H, Urine Mucus NEGATIVE, Urine Culture Indicated YES 06/11/17 18:15: Glucometer 117H 06/11/17 23:48: Glucometer 268H 06/12/17 04:15: White Blood Count 17.6H, Red Blood Count 3.80L, Hemoglobin 12.3L, Hematocrit 36L , Mean Corpuscular Volume 95, Mean Corpuscular Hemoglobin 32, Mean Corpuscular Hemoglobin Concent 34, Red Cell Distribution Width 14.6H, Platelet Count 229, Mean Platelet Volume 10.5H, Neutrophils (%) (Auto) 92H, Lymphocytes (%) (Auto) 3L, Monocytes (%) (Auto) 5, Eosinophils (%) (Auto) 0, Basophils (%) (Auto) 0, Neutrophils # (Auto) 16.3H, Lymphocytes # (Auto) 0.6L, Monocytes # (Auto) 0.8, Eosinophils # (Auto) 0.0, Basophils # (Auto) 0.0, Neutrophils % (Manual) 95, Lymphocytes % (Manual) 2, Monocytes % (Manual) 2, Eosinophils % (Manual) 0, Basophils % (Manual) 0, Band Neutrophils 1, Anisocytosis SLIGHT, Sodium Level 142, Potassium Level 3.8, Chloride Level 111H, Carbon Dioxide Level 19L, Anion Gap 12, Blood Urea Nitrogen 25H, Creatinine 1.36H, Estimat Glomerular Filtration Rate 51, BUN/Creatinine Ratio 18, Glucose Level 116H, Calcium Level 7.9L, Phosphorus Level 3.6, Magnesium Level 2.0, Total Bilirubin 0.6, Aspartate Amino Transf (AST/SGOT) 28, Alanine Aminotransferase (ALT/SGPT) 13, Alkaline Phosphatase 120, B-Type Natriuretic Peptide 2620.9H, Total Protein 5.6L, Albumin 2.8L 06/12/17 05:59: Blood Gas Puncture Site R BRACH, Blood Gas Patient Temperature 98.4, Arterial Blood pH 7.36L, Arterial Blood Partial Pressure CO2 37, Arterial Blood Partial Pressure O2 52L, Arterial Blood HCO3 20L, Arterial Blood Total CO2 21.6, Arterial Blood Oxygen Saturation 89L, Arterial Blood Base Excess -4.2L, Matthew Test YES-POS, Blood Gas Ventilator Setting YES, Blood Gas Inspired Oxygen 30% 06/12/17 07:40: Blood Gas Puncture Site RB, Blood Gas Patient Temperature 98.6, Arterial Blood pH 7.35L, Arterial Blood Partial Pressure CO2 35, Arterial Blood Partial Pressure O2 48L, Arterial Blood HCO3 19L, Arterial Blood Total CO2 20.1L, Arterial Blood Oxygen Saturation 84L, Arterial Blood Base Excess -5.5L, Matthew Test YES-POS, Blood Gas Ventilator Setting YES, Blood Gas Inspired Oxygen 30% 06/12/17 07:49: Lactic Acid Level 1.64 Microbiology 06/10/17 Blood Culture - Preliminary, Resulted No growth 06/11/17 Influenza Types A,B Antigen (MARY) - Final, Complete Assessment/Plan Assessment/Plan Assess & Plan/Chief Complaint ACUTE RESPIRATORY FAILURE CONGESTIVE HEART FAILURE SEVERE SEPSIS WITH METABOLIC LACTIC ACIDOSIS - SUSPECT PNEUMONIA COPD ATRIAL FIBRILLATION WITH RVR HYPOKALEMIA HYPOMAGNESEMIA ANEMIA LEUKOCYTOSIS ACUTE RESPIRATORY FAILURE - PT INTUBATED - DR. LOYD MANAGING CONGESTIVE HEART FAILURE - WITH ATRIAL FIBRILLATION WITH RVR - PT ON CARDIZEM DRIP - MONITOR OUTPUT, CONSULTATION TO CARDIOLOGY PLACED - DR. CUELLAR TO SEE PT TODAY. SEVERE SEPSIS WITH METABOLIC LACTIC ACIDOSIS - SUSPECT PNEUMONIA - WAITING ON CT OF CHEST WELL PENDING CULTURES OF BLOOD AND URINE - BROAD SPECTRUM ANTIBIOTIC TREATMENT INITIATED. - MRSA NEGATIVE - STOP VANCOMYCIN - CONTINUE WITH ZOSYN. COPD - CHRONIC - CONTINUE SUPPORTIVE CARE AT THIS TIME ON VENT - DEFER TO DR. LOYD ONCE PT OFF OF VENT. HYPOKALEMIA AND HYPOMAGNESEMIA - REPLACE WITH PROTOCOL, MONITOR ELECTROLYTES ANEMIA - 2 GRAM DROP SINCE ADMISSION - STABLE TODAY - SUSPECT DILUTIONAL - MONITOR H AND H. LEUKOCYTOSIS - PT ON STEROIDS - CONTINUE TO MONITOR CBC. DISCUSSED WITH PT'S - SHE REPORTED THAT "HE NEVER WANTED TO BE KEPT ALIVE WITH TUBES" AND SHE WAS IN AGREEMENT WITH DNR AND ONCE PT IS EXTUBATED, HIS STATUS WILL BE DNR/DNI DVT PROPHYLAXIS WITH LOVENOX GI PROPHYLAXIS WITH PEPCID IV. Clinical Quality Measures DVT/VTE Risk/Contraindication: Risk Factor Score Per Nursin RFS Level Per Nursing on Admit: 4+=Very High ISRRAEL SONI MD Jun 12, 2017 08:14
[2017-06-12] MEDS ORDERED: FUROSEMIDE 40 MG/4 ML INJ (LASIX) IVP NR ×3 (08:15→15:30)
--- NOTE | 2017-06-12 08:54 | Diagnostic Imaging Report ---
INDICATION: Acute respiratory failure. COMPARISON: 06/11/2017. FINDINGS: An ET tube tip projects over the mid trachea. An OG or NG catheter goes beneath the diaphragm. The right IJ is at the lower SVC. Bilateral effusions, greater right than left, are present. There is cardiomegaly, vascular congestion, and 5 lobed mixed interstitial and airspace disease (edema versus pneumonia). The severity of lung disease and pleural fluid volumes have increased on the left in the interim. IMPRESSION: Likely worsened failure pattern with progression most notably in the left chest where there is increased pleural fluid and presumed edema. We could not exclude pneumonia superimposed in the appropriate scenario. The support apparatus projects in good alignment including a right IJ at the SVC with no pneumothorax. Dictated by: Dictated on workstation # [id number]
[2017-06-12] MEDS ORDERED: FAMOTIDINE 20MG/2ML IV (PEPCID) IVP SCH (09:00)
[2017-06-12] MEDS ORDERED: VANCOMYCIN INJECTION 1,000 MG in NS (IVPB) 250 ML IV SCH (09:00)
[2017-06-12] MEDS: ENOXAPARIN 40 MG/0.4 ML (LOVENOX) SYR SC SCH (09:02)
--- NOTE | 2017-06-12 09:04 | Progress Note-Cardiology ---
Cardiology SOAP Progress Note Subjective: Remains intubated and sedated. Spouse at the bedside. Objective: I&O/Vital Signs Vital Sign - Last 12Hours 06/12/17 06/12/17 06/12/17 06/12/17 01:00 01:00 02:00 02:42 Pulse 100 100 105 91 Resp 23 29 23 B/P (MAP) 130/67 (88) 109/62 (78) Pulse Ox 92 95 93 O2 Delivery Mechanical Ventilator Mechanical Ventilator O2 Flow Rate 25.00 25.00 FiO2 25 06/12/17 06/12/17 06/12/17 06/12/17 03:00 03:58 04:00 04:00 Temp 98.6 Pulse 97 95 95 Resp 20 19 B/P (MAP) 108/57 (74) 106/58 97/61 (73) Pulse Ox 92 91 91 O2 Delivery Mechanical Ventilator Mechanical Ventilator Mechanical Ventilator O2 Flow Rate 25.00 25.00 25.00 06/12/17 06/12/17 06/12/17 06/12/17 04:30 05:00 05:30 06:00 Pulse 96 90 92 95 Resp 24 22 22 27 B/P (MAP) 114/62 (79) 94/56 (69) 99/69 (79) Pulse Ox 94 95 95 98 O2 Delivery Mechanical Ventilator Mechanical Ventilator Mechanical Ventilator O2 Flow Rate 30.00 30.00 30.00 FiO2 30 06/12/17 06/12/17 06/12/17 06/12/17 06:15 06:25 07:00 07:00 Pulse 100 122 105 Resp 34 36 B/P (MAP) 129/59 (82) Pulse Ox 94 91 O2 Delivery Mechanical Ventilator O2 Flow Rate 30.00 FiO2 30 30 06/12/17 06/12/17 06/12/17 06/12/17 08:00 08:00 08:17 09:00 Pulse 128 116 105 Resp 33 35 27 B/P (MAP) 94/64 (74) 97/55 (69) Pulse Ox 91 89 92 95 O2 Delivery Mechanical Ventilator Mechanical Ventilator Mechanical Ventilator O2 Flow Rate 25.00 30.00 30.00 FiO2 30 06/12/17 11:16 Pulse 114 Resp 37 Pulse Ox 95 FiO2 30 Intake and Output 06/12/17 00:00 Intake Total 2330 ml Output Total 375 ml Balance 1955 ml Weight (Pounds): 138 Weight (Ounces): 9.0 Weight (Calculated Kilograms): [id number] Constitutional: other (intubated, sedated, on mech vent) Respiratory: No accessory muscle use, other (good bilat air entry, but diminished at the bases and some large airway rhonchi) Cardiovascular: irregularly irregular, S1 and S2, systolic murmur (faint [place] at card base) Gastrointestional: No tender, No guarding, No rebound, audible bowel sounds Extremities: No clubbing, No cyanosis, No significant edema Neurologic/Psychiatric: other (intubated, sedated, not able to cooperate with neuro exam) Skin: normal color, warm/dry, No rash on exposed areas, No ulcerations on exposed areas Results/Procedures: Labs Laboratory Tests 06/11/17 18:15: Glucometer 117H 06/11/17 23:48: Glucometer 268H 06/12/17 04:15: White Blood Count 17.6H, Red Blood Count 3.80L, Hemoglobin 12.3L, Hematocrit 36L , Mean Corpuscular Volume 95, Mean Corpuscular Hemoglobin 32, Mean Corpuscular Hemoglobin Concent 34, Red Cell Distribution Width 14.6H, Platelet Count 229, Mean Platelet Volume 10.5H, Neutrophils (%) (Auto) 92H, Lymphocytes (%) (Auto) 3L, Monocytes (%) (Auto) 5, Eosinophils (%) (Auto) 0, Basophils (%) (Auto) 0, Neutrophils # (Auto) 16.3H, Lymphocytes # (Auto) 0.6L, Monocytes # (Auto) 0.8, Eosinophils # (Auto) 0.0, Basophils # (Auto) 0.0, Neutrophils % (Manual) 95, Lymphocytes % (Manual) 2, Monocytes % (Manual) 2, Eosinophils % (Manual) 0, Basophils % (Manual) 0, Band Neutrophils 1, Anisocytosis SLIGHT, Sodium Level 142, Potassium Level 3.8, Chloride Level 111H, Carbon Dioxide Level 19L, Anion Gap 12, Blood Urea Nitrogen 25H, Creatinine 1.36H, Estimat Glomerular Filtration Rate 51, BUN/Creatinine Ratio 18, Glucose Level 116H, Calcium Level 7.9L, Phosphorus Level 3.6, Magnesium Level 2.0, Total Bilirubin 0.6, Aspartate Amino Transf (AST/SGOT) 28, Alanine Aminotransferase (ALT/SGPT) 13, Alkaline Phosphatase 120, B-Type Natriuretic Peptide 2620.9H, Total Protein 5.6L, Albumin 2.8L 06/12/17 05:59: Blood Gas Puncture Site R BRACH, Blood Gas Patient Temperature 98.4, Arterial Blood pH 7.36L, Arterial Blood Partial Pressure CO2 37, Arterial Blood Partial Pressure O2 52L, Arterial Blood HCO3 20L, Arterial Blood Total CO2 21.6, Arterial Blood Oxygen Saturation 89L, Arterial Blood Base Excess -4.2L, Matthew Test YES-POS, Blood Gas Ventilator Setting YES, Blood Gas Inspired Oxygen 30% 06/12/17 07:40: Blood Gas Puncture Site RB, Blood Gas Patient Temperature 98.6, Arterial Blood pH 7.35L, Arterial Blood Partial Pressure CO2 35, Arterial Blood Partial Pressure O2 48L, Arterial Blood HCO3 19L, Arterial Blood Total CO2 20.1L, Arterial Blood Oxygen Saturation 84L, Arterial Blood Base Excess -5.5L, Matthew Test YES-POS, Blood Gas Ventilator Setting YES, Blood Gas Inspired Oxygen 30% 06/12/17 07:49: Lactic Acid Level 1.64 Microbiology 06/10/17 Blood Culture - Preliminary, Resulted No growth 06/11/17 Influenza Types A,B Antigen (MARY) - Final, Complete 06/11/17 Urine Culture - Preliminary, Resulted NO GROWTH Laboratory Tests 06/10/17 22:50 06/11/17 04:45 06/12/17 04:15 A/P: Assessment: Acute resp failure multifactorial (see below) Pneumonia with sepsis and acute respiratory failure Acute on chronic systolic CHF. LVEF 20-25% on echo of 06/12/17 Severe aortic stenosis. 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 History of alcoholism and tobaccoism. He quit tobacco use in Aug 2013. Alcohol consumption currently is 1 beer twice a week, according to him. History of hyperkalemia when he was on a combination of PERNELL inhibitors and spironolactone. He has been able to tolerate PERNELL inhibitors without spironolactone. Chronic left infrascapular soft tissue mass for which he has chosen not to undergo any surgical intervention. Peripheral arterial disease with history of stenting of the right superficial femoral artery with Atrium 6.0 x 22-mm stent by Dr. Gupta in April 2008. On 03/15/15, he had Supera [id number] stent to the R SFA by Dr Jose. On peripheral angio of 04/13/15, there is diffuse moderate disease of the L SFA and ostial occlusion of the left peroneal and left ant tib.. The left post tibial is intact and provides good distal runoff. He does not report leg claucidation Hyperlipidemia being treated with pravastatin. 50% LICA AND 60% NIEVES stenoses on carotid u/s of September 2016 Hypertension Moderate coronary artery disease per cardiac catheterization of June,. Myocardial perfusion imaging study from August 2012, showed no evidence of significant myocardial ischemia or infarction. 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 We have advised him to continue to refrain from tobacco use Plan: * Continues to be critically ill * Continue treatment for ac resp failure and pneumonia per pulmonary/medical services * Continue IV fluids at reduced rate as per pulmonary services * Diuretics as needed for heart failure - IV Lasix given this morning * Hematuria - Dr. Longo consulted * UTI - management per medical services * Continue IV Diltiazem for rate control * Monitor labs * Enoxaparin (adjusted for renal failure) while off oral apixaban * CXR pending * Spoke with spouse at the bedside this morning Physician Assessment Physician Assessment Intubated and on mech vent and unresponsive Lungs: dec bs at bases Cor: irreg Ext: mild edema Echo: see above and see report, please A&R * As documented in our note above that I updated (italics) and as noted below * Diuretics as needed * Monitor labs * Critically ill. Prognosis guarded ANATOLIY SALDIVAR SENIOR SOFTWARE Q[employer] ENGINEER Jun 12, 2017 09:04 WILBUR CUELLAR MD FACP FAC CCDS Jun 12, 2017 12:59
[2017-06-12] MEDS: FUROSEMIDE 40 MG/4 ML INJ (LASIX) IVP SCH (09:18)
--- NOTE | 2017-06-12 11:45 | Occ Therapy Progress Note ---
Therapy Progress Note Order received and chart reviewed. Pt. is sedated and on vent. Will continue to monitor pt. No skilled occupational therapy at this time. [id number] MELL ADAMES OT Jun 12, 2017 11:45
[2017-06-12] MEDS: PROPOFOL DRIP (ICU) 100 ML IV SCH (14:45)
[2017-06-12] MEDS: fentaNYL INJECTION 100 MCG/2 ML AMP IV PRN ×2 (17:15→18:33)
[2017-06-12] MEDS: meTOprolol 5 MG/5 ML (LOPRESSOR) VIAL IV SCH ×2 (17:17→23:44)
[2017-06-12] MEDS ORDERED: ENALAPRILAT 2.5 MG/2 ML (VASOTEC) VIAL IV SCH (21:00)
[2017-06-13] VITALS (14 sets, daily range): BP systolic 73–118; BP diastolic 42–94
[2017-06-13] MEDS: inSUlin (REGULAR) HUMAN 1 UNIT/0.01 ML (CHARGE PER UNIT) SC SCH ×2 (00:06→06:00)
[2017-06-13] MEDS ORDERED: NS (IVPB) 100 ML ONE (01:35)
[2017-06-13] MEDS ORDERED: DILTIAZEM 125 MG/25 ML IV (CARDIZEM) IV ONE (01:36)
[2017-06-13] MEDS: DILTIAZEM IV FOR DRIP 125 MG in NS (IVPB) 100 ML IV SCH (01:47)
[2017-06-13] MEDS: RT-ALBUTEROL/IPRATROPIUM 3 ML (DUONEB) VIAL INH SCH ×2 (01:54→08:45)
[2017-06-13 05:10] LABS: BASOPHILS % (AUTO) 0 % (0-10); EOSINOPHILS % (AUTO) 0 % (0-10); LYMPHOCYTES # (AUTO) 0.6 X 10^3 (1.0-4.0); LYMPHOCYTES % (AUTO) 2 % (12-44); MEAN CORPUSCULAR HEMOGLOBIN 32 PG (25-34); MEAN CORPUSCULAR HGB CONC 34 G/DL (32-36); MEAN CORPUSCULAR VOLUME 95 FL (80-99); MEAN PLATELET VOLUME 10.5 FL (7.4-10.4); MONOCYTES # (AUTO) 1.7 X 10^3 (0.0-1.0); MONOCYTES % (AUTO) 8 % (0-12); NEUTROPHILS # (AUTO) 20.4 X 10^3 (1.8-7.8); NEUTROPHILS % (AUTO) 90 % (42-75); PLATELET COUNT 259 10^3/uL (130-400); RED BLOOD COUNT 3.96 10^6/uL (4.35-5.85); RED CELL DISTRIBUTION WIDTH 14.9 % (10.0-14.5); WHITE BLOOD COUNT 22.7 10^3/uL (4.3-11.0)
[2017-06-13 05:33] LABS: ABG BASE EXCESS -5.5 MMOL/L (-2.5-2.5); ABG HCO3 19 MMOL/L (23-27); ABG OXYGEN SATURATION 91 % (94-100); ABG PCO2 34 MMHG (35-45); ABG PH 7.37 (7.37-7.43); ABG PO2 60 MMHG (79-93); ABG TCO2 19.8 MMOL/L (21.0-31.0)
[2017-06-13 05:34] LABS: BAND NEUTROPHILS 1 %; BASOPHILS % (MANUAL) 0 %; EOSINOPHILS % (MANUAL) 0 %; LYMPHOCYTES % (MANUAL) 4 %; NEUTROPHILS % (MANUAL) 90 %; REACTIVE LYMPHOCYTES 2 %
[2017-06-13 05:36] LABS: ALLENS TEST YES-POS; PATIENT TEMP 99.9
[2017-06-13] MEDS: NS IV 1000 ML 1,000 ML IV SCH (05:37)
[2017-06-13] MEDS: meTOprolol 5 MG/5 ML (LOPRESSOR) VIAL IV SCH (05:39)
[2017-06-13] MEDS: methylPREDNISolone 40 MG/ML (Solu-MEDROL) VIAL IV SCH (05:39)
[2017-06-13 05:54] LABS: BILIRUBIN,TOTAL 0.7 MG/DL (0.1-1.0); CALCIUM 8.6 MG/DL (8.5-10.1); CREATININE SERUM 2.09 MG/DL (0.60-1.30); PHOSPHORUS 4.2 MG/DL (2.3-4.7); TOTAL PROTEIN 6.4 GM/DL (6.4-8.2)
[2017-06-13] MEDS: PIPERACILLIN SODIUM/TAZOBACTAM 4.5 GM in NS (IVPB) 100 ML IV SCH (05:54)
[2017-06-13] MEDS: KCL 20 MEQ TAB (K-DUR) PO SCH (06:00)
[2017-06-13] MEDS: MAGNESIUM 1 GM/100 ML IVPB 100 ML IV SCH (06:00)
[2017-06-13] MEDS: POTASSIUM CL 10MEQ/50ML IVPB 50 ML IV SCH (06:00)
--- NOTE | 2017-06-13 07:05 | Pulmonary Progress Note ---
Subjective Time Seen by Provider: 07:05 Subjective/Events-last exam Pt is doing slightly better clinically. Pt is now DNR/DNI. Once extubated states he does not want it reinserted. Exam Exam Vital Signs Date Time Temp Pulse Resp B/P (MAP) Pulse Ox O2 Delivery O2 Flow Rate FiO2 06/13/17 06:00 104 28 100/64 (76) 94 Mechanical Ventilator 35.00 06/13/17 05:00 103 30 118/65 (82) 93 Mechanical Ventilator 35.00 06/13/17 04:50 108 33 95 35 06/13/17 04:00 103 28 112/71 (85) 92 Mechanical Ventilator 35.00 06/13/17 04:00 93 Mechanical Ventilator 35.00 06/13/17 03:00 92 29 90/57 (68) 94 Mechanical Ventilator 35.00 06/13/17 02:00 90 28 80/42 (55) 98 Mechanical Ventilator 35.00 06/13/17 01:55 85 28 99 35 06/13/17 01:47 102 06/13/17 01:47 102 86/55 06/13/17 01:00 95 06/13/17 01:00 95 30 111/64 (80) 95 Mechanical Ventilator 35.00 06/13/17 00:09 94 29 94 35 06/13/17 00:00 81 25 98/57 (71) 96 Mechanical Ventilator 35.00 06/12/17 23:55 96 Mechanical Ventilator 35.00 06/12/17 23:40 99.8 06/12/17 23:00 101 27 108/67 (81) 95 Mechanical Ventilator 35.00 06/12/17 22:16 107 31 94 35 06/12/17 22:00 104 27 112/63 (79) 94 Mechanical Ventilator 35.00 06/12/17 21:00 101 27 119/64 (82) 94 Mechanical Ventilator 35.00 06/12/17 20:00 93 Mechanical Ventilator 35.00 06/12/17 20:00 112 26 102/78 (86) 91 Mechanical Ventilator 35.00 06/12/17 19:00 104 06/12/17 19:00 98.1 107 27 115/73 (87) 92 Mechanical Ventilator 35.00 06/12/17 18:54 96 17 92 35 06/12/17 18:24 Mechanical Ventilator 35.00 06/12/17 18:00 112 30 116/84 (95) 93 Mechanical Ventilator 30.00 06/12/17 17:13 98.6 122 26 120/74 93 Mechanical Ventilator 30.00 06/12/17 17:00 122 26 120/74 (89) 93 Mechanical Ventilator 30.00 06/12/17 16:00 98.0 06/12/17 16:00 126 32 99/69 (79) 91 Mechanical Ventilator 30.00 06/12/17 16:00 93 Mechanical Ventilator 35.00 06/12/17 15:00 128 19 127/78 (94) 96 Mechanical Ventilator 30.00 06/12/17 14:50 124 19 94 35 06/12/17 14:45 98.6 117 30 126/73 94 Mechanical Ventilator 30.00 06/12/17 14:00 117 30 126/73 (90) 94 Mechanical Ventilator 30.00 06/12/17 13:00 123 32 115/85 (95) 94 Mechanical Ventilator 30.00 06/12/17 13:00 120 06/12/17 12:00 93 Mechanical Ventilator 30.00 06/12/17 12:00 125 33 117/74 (88) 95 Mechanical Ventilator 30.00 06/12/17 12:00 97.6 06/12/17 11:16 114 37 95 30 06/12/17 11:00 105 21 106/81 (89) 97 Mechanical Ventilator 30.00 06/12/17 10:00 98 22 106/59 (75) 96 Mechanical Ventilator 30.00 06/12/17 09:00 105 27 97/55 (69) 95 Mechanical Ventilator 30.00 06/12/17 08:17 116 35 92 30 06/12/17 08:00 128 33 94/64 (74) 89 Mechanical Ventilator 30.00 06/12/17 08:00 97.0 06/12/17 08:00 91 Mechanical Ventilator 25.00 I & O 06/13/17 07:00 Intake Total 2865 ml Output Total 1310 ml Balance 1555 ml General Appearance: Chronically ill, Cachetic HEENT: PERRL/EOMI Neck: Supple Respiratory: Chest Non Tender, Decreased Breath Sounds Cardiovascular: Systolic Murmur Capillary Refill: Less Than 3 Seconds Peripheral Pulses: 2+ Dorsalis Pedis (R), 2+ Left Dors-Pedis (L), 2+ Radial Pulses (R), 2+ Radial Pulses (L) Gastrointestinal: normal bowel sounds, soft Extremity: Non Tender, No Calf Tenderness, No Pedal Edema Neurologic/Psychiatric: Alert, Other (SEDATED) Skin: Warm/Dry Lymphatic: No Adenopathy Results Lab Laboratory Tests 06/12/17 04:15 06/13/17 05:00 Assessment/Plan Assessment/Plan Severe sepsis with pneumonia - failed outpatient treatment -Zosyn - CT of chest without contrast -- reviewed Bilateral Right > left pleural effusions -decrease IVF to 50cc/hr Acute on chronic respiratory failure -continue ventilatory support - will attempt vent wean today -will trial pt on BiPAP mode. -SVNS -solumedrol to 40 Q 6 Hematuria -hold lovenox cardiomyopathy with EF 20% -Cardiology is following Acute renal failure -monitor Metabolic lactic acidosis -repeat LA -IVF 233 PT is now a DNR. Once pt is extubated per he does not want to be reintubated. Clinical Quality Measures DVT/VTE Risk/Contraindication: Risk Factor Score Per Nursin RFS Level Per Nursing on Admit: 4+=Very High ELLYN LOYD DO Jun 13, 2017 07:05
[2017-06-13] MEDS ORDERED: TROUGH ORDER-PHARMACY XX NR (08:00)
--- NOTE | 2017-06-13 08:08 | Progress Note (SOAP) ---
Subjective Date Seen by Provider: Jun 13, 2017 Time Seen by Provider: 08:08 Review of Systems PT INTUBATED Objective Exam Vital Signs Date Time Temp Pulse Resp B/P (MAP) Pulse Ox O2 Delivery O2 Flow Rate FiO2 06/13/17 06:00 104 28 100/64 (76) 94 Mechanical Ventilator 35.00 06/13/17 05:00 103 30 118/65 (82) 93 Mechanical Ventilator 35.00 06/13/17 04:50 108 33 95 35 06/13/17 04:00 103 28 112/71 (85) 92 Mechanical Ventilator 35.00 06/13/17 04:00 93 Mechanical Ventilator 35.00 06/13/17 03:00 92 29 90/57 (68) 94 Mechanical Ventilator 35.00 06/13/17 02:00 90 28 80/42 (55) 98 Mechanical Ventilator 35.00 06/13/17 01:55 85 28 99 35 06/13/17 01:47 102 06/13/17 01:47 102 86/55 06/13/17 01:00 95 06/13/17 01:00 95 30 111/64 (80) 95 Mechanical Ventilator 35.00 06/13/17 00:09 94 29 94 35 06/13/17 00:00 81 25 98/57 (71) 96 Mechanical Ventilator 35.00 06/12/17 23:55 96 Mechanical Ventilator 35.00 06/12/17 23:40 99.8 06/12/17 23:00 101 27 108/67 (81) 95 Mechanical Ventilator 35.00 06/12/17 22:16 107 31 94 35 06/12/17 22:00 104 27 112/63 (79) 94 Mechanical Ventilator 35.00 06/12/17 21:00 101 27 119/64 (82) 94 Mechanical Ventilator 35.00 06/12/17 20:00 93 Mechanical Ventilator 35.00 06/12/17 20:00 112 26 102/78 (86) 91 Mechanical Ventilator 35.00 06/12/17 19:00 104 06/12/17 19:00 98.1 107 27 115/73 (87) 92 Mechanical Ventilator 35.00 06/12/17 18:54 96 17 92 35 06/12/17 18:24 Mechanical Ventilator 35.00 06/12/17 18:00 112 30 116/84 (95) 93 Mechanical Ventilator 30.00 06/12/17 17:13 98.6 122 26 120/74 93 Mechanical Ventilator 30.00 06/12/17 17:00 122 26 120/74 (89) 93 Mechanical Ventilator 30.00 06/12/17 16:00 98.0 06/12/17 16:00 126 32 99/69 (79) 91 Mechanical Ventilator 30.00 06/12/17 16:00 93 Mechanical Ventilator 35.00 06/12/17 15:00 128 19 127/78 (94) 96 Mechanical Ventilator 30.00 06/12/17 14:50 124 19 94 35 06/12/17 14:45 98.6 117 30 126/73 94 Mechanical Ventilator 30.00 06/12/17 14:00 117 30 126/73 (90) 94 Mechanical Ventilator 30.00 06/12/17 13:00 123 32 115/85 (95) 94 Mechanical Ventilator 30.00 06/12/17 13:00 120 06/12/17 12:00 93 Mechanical Ventilator 30.00 06/12/17 12:00 125 33 117/74 (88) 95 Mechanical Ventilator 30.00 06/12/17 12:00 97.6 06/12/17 11:16 114 37 95 30 06/12/17 11:00 105 21 106/81 (89) 97 Mechanical Ventilator 30.00 06/12/17 10:00 98 22 106/59 (75) 96 Mechanical Ventilator 30.00 06/12/17 09:00 105 27 97/55 (69) 95 Mechanical Ventilator 30.00 06/12/17 08:17 116 35 92 30 I & O 06/13/17 07:00 Intake Total 2865 ml Output Total 1310 ml Balance 1555 ml Capillary Refill : Less Than 3 Seconds Results Lab Laboratory Tests 06/12/17 14:46: Glucometer 105 06/12/17 18:37: Glucometer 110 06/12/17 23:48: Glucometer 201H 06/13/17 05:00: White Blood Count 22.7H, Red Blood Count 3.96L, Hemoglobin 12.7L, Hematocrit 38L , Mean Corpuscular Volume 95, Mean Corpuscular Hemoglobin 32, Mean Corpuscular Hemoglobin Concent 34, Red Cell Distribution Width 14.9H, Platelet Count 259, Mean Platelet Volume 10.5H, Neutrophils (%) (Auto) 90H, Lymphocytes (%) (Auto) 2L, Monocytes (%) (Auto) 8, Eosinophils (%) (Auto) 0, Basophils (%) (Auto) 0, Neutrophils # (Auto) 20.4H, Lymphocytes # (Auto) 0.6L, Monocytes # (Auto) 1.7H, Eosinophils # (Auto) 0.0, Basophils # (Auto) 0.0, Neutrophils % (Manual) 90, Lymphocytes % (Manual) 4, Monocytes % (Manual) 3, Eosinophils % (Manual) 0, Basophils % (Manual) 0, Band Neutrophils 1, Reactive Lymphocytes 2, Toxic Granulation 1+, Sodium Level 145, Potassium Level 4.0, Chloride Level 113H, Carbon Dioxide Level 20L, Anion Gap 12, Blood Urea Nitrogen 50H, Creatinine 2.09H, Estimat Glomerular Filtration Rate 31, BUN/Creatinine Ratio 24, Glucose Level 136H, Calcium Level 8.6, Phosphorus Level 4.2, Magnesium Level 2.0, Total Bilirubin 0.7, Aspartate Amino Transf (AST/SGOT) 192H, Alanine Aminotransferase (ALT/SGPT) 153H, Alkaline Phosphatase 91, Total Protein 6.4, Albumin 3.0L 06/13/17 05:25: Blood Gas Puncture Site R BRACH, Blood Gas Patient Temperature 99.9, Arterial Blood pH 7.37, Arterial Blood Partial Pressure CO2 34L, Arterial Blood Partial Pressure O2 60L, Arterial Blood HCO3 19L, Arterial Blood Total CO2 19.8L, Arterial Blood Oxygen Saturation 91L, Arterial Blood Base Excess -5.5L, Matthew Test YES-POS, Blood Gas Ventilator Setting YES, Blood Gas Inspired Oxygen 35% Microbiology 06/10/17 Blood Culture - Preliminary, Resulted No growth 06/11/17 Influenza Types A,B Antigen (MARY) - Final, Complete 06/11/17 Urine Culture - Preliminary, Resulted NO GROWTH Assessment/Plan Assessment/Plan Assess & Plan/Chief Complaint ACUTE RESPIRATORY FAILURE CONGESTIVE HEART FAILURE SEVERE SEPSIS WITH METABOLIC LACTIC ACIDOSIS - SUSPECT PNEUMONIA COPD ATRIAL FIBRILLATION WITH RVR HYPOKALEMIA HYPOMAGNESEMIA ANEMIA LEUKOCYTOSIS ACUTE RESPIRATORY FAILURE - PT INTUBATED - DR. LOYD MANAGING CONGESTIVE HEART FAILURE - WITH ATRIAL FIBRILLATION WITH RVR - PT ON CARDIZEM DRIP - MONITOR OUTPUT, CONSULTATION TO CARDIOLOGY PLACED - DR. CUELLAR TO SEE PT TODAY. SEVERE SEPSIS WITH METABOLIC LACTIC ACIDOSIS - SUSPECT PNEUMONIA - WAITING ON CT OF CHEST WELL PENDING CULTURES OF BLOOD AND URINE - BROAD SPECTRUM ANTIBIOTIC TREATMENT INITIATED. - MRSA NEGATIVE - STOP VANCOMYCIN - CONTINUE WITH ZOSYN. COPD - CHRONIC - CONTINUE SUPPORTIVE CARE AT THIS TIME ON VENT - DEFER TO DR. LOYD ONCE PT OFF OF VENT. HYPOKALEMIA AND HYPOMAGNESEMIA - REPLACE WITH PROTOCOL, MONITOR ELECTROLYTES ANEMIA - 2 GRAM DROP SINCE ADMISSION - STABLE TODAY - SUSPECT DILUTIONAL - MONITOR H AND H. LEUKOCYTOSIS - PT ON STEROIDS - CONTINUE TO MONITOR CBC. DISCUSSED WITH PT'S - SHE REPORTED THAT "HE NEVER WANTED TO BE KEPT ALIVE WITH TUBES" AND SHE WAS IN AGREEMENT WITH DNR AND ONCE PT IS EXTUBATED, HIS STATUS WILL BE DNR/DNI DVT PROPHYLAXIS WITH LOVENOX GI PROPHYLAXIS WITH PEPCID IV. Clinical Quality Measures DVT/VTE Risk/Contraindication: Risk Factor Score Per Nursin RFS Level Per Nursing on Admit: 4+=Very High ISRRAEL SONI MD Jun 13, 2017 08:08
[2017-06-13] MEDS ORDERED: morphine INJ 4 MG/ML 1 ML (VIAL/SYRINGE) IV PRN ×2 (08:45→10:30)
[2017-06-13] MEDS ORDERED: RT-ALBUTEROL/IPRATROPIUM 3 ML (DUONEB) VIAL INH PRN (08:45)
[2017-06-13] MEDS ORDERED: ARTIFICAL TEARS 0.4 ML UNIT DOSE (REFRESH PLUS) OU PRN (08:45)
[2017-06-13] MEDS ORDERED: PROMETHAZINE INJ 25 MG/ML (PHENERGAN) AMP IVP PRN (08:45)
[2017-06-13] MEDS ORDERED: GLYCOPYRROLATE 0.2 MG/ML (ROBINUL) 2 ML VIAL IV PRN (08:45)
[2017-06-13] MEDS ORDERED: SALIVA STIMULANT MOUTH SPRAY (BIOTENE) 1.5 OZ MM PRN (08:45)
[2017-06-13] MEDS ORDERED: ACETAMINOPHEN 650 MG SUPP (TYLENOL) PR PRN (08:45)
[2017-06-13] MEDS ORDERED: BISACODYL 10 MG SUPP (DULCOLAX) PR PRN (08:45)
[2017-06-13] MEDS ORDERED: ONDANSETRON 4 MG/2 ML (SDV) Z0FRAN IVP PRN (08:45)
[2017-06-13] MEDS ORDERED: LORazepam INJ 2 MG/ML (ATIVAN) VIAL ONE (09:03)
[2017-06-13] MEDS: LORazepam INJ 2 MG/ML (ATIVAN) VIAL IVP PRN ×2 (09:06→14:06)
--- NOTE | 2017-06-13 09:21 | Diagnostic Imaging Report ---
INDICATION: Respiratory failure Frontal chest obtained at 434 hours am and compared to 06/12/2017. ET tube tip overlies mid trachea. NG tube tip is below the film. Right IJ central catheter is unchanged. Extensive bilateral infiltrates remain present and are unchanged compared to the prior study. There is no pneumothorax. There is some pleural fluid in the lung bases on both sides. IMPRESSION: Unchanged bilateral infiltrates and bilateral pleural effusions. Stable life-support lines. Dictated by: Dictated on workstation # [id number]
[2017-06-13] MEDS ORDERED: LORazepam INJ 2 MG/ML (ATIVAN) VIAL IVP ONE (10:45)
[2017-06-13] MEDS: morphine INJ 4 MG/ML 1 ML (VIAL/SYRINGE) IVP NR ×2 (11:08→11:16)
== END 2017-06-13 17:34 | disposition expired | DRG 871 ==
LOC: EDUNIT# 22:45 → ER 22:46 → ICU 06-11 01:35 → 4TH 06-13 09:41
PROVIDERS: ADMIT Family Medicine; ATTEND Family Medicine
PROC: 5A1945Z Respiratory Ventilation, 24-96 Consecutive Hours (ICD-10-PCS; principal; 2017-06-11)
DX: A41.9 Sepsis, unspecified organism (principal); R65.20 Severe sepsis without septic shock; J96.22 Acute and chronic respiratory failure with hypercapnia; J18.9 Pneumonia, unspecified organism; J44.0 Chronic obstructive pulmonary disease with (acute) lower respiratory infection; J44.1 Chronic obstructive pulmonary disease with (acute) exacerbation; N17.9 Acute kidney failure, unspecified; I42.9 Cardiomyopathy, unspecified; Z66 Do not resuscitate; I11.0 Hypertensive heart disease with heart failure; I50.42 Chronic combined systolic (congestive) and diastolic (congestive) heart failure; I48.0 Paroxysmal atrial fibrillation; J90 Pleural effusion, not elsewhere classified; N39.0 Urinary tract infection, site not specified; E87.6 Hypokalemia; E83.42 Hypomagnesemia; D64.9 Anemia, unspecified; E78.5 Hyperlipidemia, unspecified; I65.23 Occlusion and stenosis of bilateral carotid arteries; I73.9 Peripheral vascular disease, unspecified; I35.0 Nonrheumatic aortic (valve) stenosis; M06.9 Rheumatoid arthritis, unspecified; L40.9 Psoriasis, unspecified; R31.9 Hematuria, unspecified; Z79.01 Long term (current) use of anticoagulants; Z87.891 Personal history of nicotine dependence; Z95.820 Peripheral vascular angioplasty status with implants and grafts
CPT/HCPCS: 31500; 36415; 51702; 71010; 71250; 80053; 80202; 81000; 82550; 82553; 82805; 82962; 83605; 83735; 83874; 83880; 84100; 84484; 85007; 85025; 85027; 85379; 85610; 85730; 87040; 87070; 87081; 87088; 87205; 87804; 93005; 93306; 94002; 94003; 94640; 94799; 96361; 96365; 96367; 96368; 96375; 96376